=== PATIENT | female | born 1980 | race Caucasian/White ===

== ENCOUNTER 2016-12-03 17:44 | Emergency (ER) | payer SELFPAY ==
[2016-12-03 20:06] LABS: Basophils % (Auto) 1.1 % (0.0-1.8); Eosinophils % (Auto) 1.8 % (0.0-4.3); Hematocrit 41.4 % (30.3-42.9); Hemoglobin 13.7 gm/dl (10.1-14.3); Mean Corpuscular HGB Conc 33 % (30-34); Mean Corpuscular Hemoglobin 30 pg (28-32); Mean Corpuscular Volume 91 fl (79-97); Platelet Count 272 K/mm3 (140-440); Red Blood Count 4.54 M/mm3 (3.65-5.03); Red Cell Distribution Width 12.7 % (13.2-15.2); White Blood Count 12.5 K/mm3 (4.5-11.0)
[2016-12-03 20:33] LABS: Anion Gap 22 mmol/L; Blood Urea Nitrogen 12 mg/dL (7-17); Calcium 8.9 mg/dL (8.4-10.2); Carbon Dioxide 19 mmol/L (22-30); Glucose 465 mg/dL (65-100); Potassium 4.3 mmol/L (3.6-5.0); Sodium 130 mmol/L (137-145)
[2016-12-03] MEDS ORDERED: XYLOCAINE 1%/ EPI 1:100,000 INFILTRATI ONE (23:05)
[2016-12-03] MEDS ORDERED: SUBLIMAZE IV ONE (23:09)
[2016-12-03] MEDS ORDERED: XYLOCAINE 2%/ EPI 1:200,000 INFILTRATI ONE (23:09)
--- NOTE | 2016-12-03 23:25 | Emergency Department Report ---
ED General Adult HPI - General Chief complaint: Skin/Abscess/Foreign Body Stated complaint: HYPERGLYCEMIA Time Seen by Provider: 12/03/16 22:51 Source: patient Mode of arrival: Ambulatory Limitations: No Limitations - History of Present Illness Initial comments: This is a 36-year-old female. She is previously known to me. Her primary care doctor is Dr. Harsha Hernandez. Has a past medical history of diabetes. Patient ran out of insulin approximately one month ago; the patient takes Humulin 20 units in the morning, and 20 units at night. Patient reports that she is not . She presents to the ER with right lower abdominal abscess, with mild surrounding cellulitis. No fevers or chills , no chest pain or shortness of breath, no nausea or vomiting, reports pain in that area which is sharp, increases with palpation and range of motion, decreases with rest. -: Gradual Location: abdomen Radiation: non-radiation Severity scale (0 -10): 7 Quality: sharp Consistency: intermittent Improves with: rest Worsens with: movement Associated Symptoms: denies other symptoms - Related Data Previous Rx's Medication Instructions Recorded Last Taken Type Acetaminophen/Codeine [Tylenol #3] 1 tab PO Q6H PRN #20 tab 08/09/15 Unknown Rx Amoxicillin [Trimox CAP] 500 mg PO Q8H #30 capsule 08/09/15 Unknown Rx Insulin NPH/Regular [NovoLIN 70/30] 20 unit SQ BID #30 ml 08/09/15 Unknown Rx Vit-Fe Fumar-FA [ 1 tab PO QDAY #90 tablet 08/09/15 Unknown Rx Vitamin] Cephalexin [Keflex] 500 mg PO Q12HR #20 cap 09/12/15 Unknown Rx Doxycycline [Vibramycin CAP] 100 mg PO Q12HR #10 capsule 12/03/16 Unknown Rx Insulin NPH, Human [NovoLIN N] 20 unit SQ BID #100 ml 12/03/16 Unknown Rx Ketorolac [Toradol] 10 mg PO Q6H PRN #20 tablet 12/03/16 Unknown Rx oxyCODONE [Roxicodone] 5 mg PO Q6HR PRN #15 tablet 12/04/16 Unknown Rx Allergies Allergy/AdvReac Type Severity Reaction Status Date / Time No Known Allergies Allergy Verified 12/03/16 18:26 ED Review of Systems ROS: Stated complaint: HYPERGLYCEMIA Other details as noted in HPI Constitutional: denies: fever Eyes: denies: vision change ENT: denies: epistaxis Respiratory: denies: cough Cardiovascular: denies: chest pain Gastrointestinal: as per HPI. denies: vomiting Genitourinary: denies: urgency, dysuria Musculoskeletal: arthralgia Skin: rash, lesions Neurological: as per HPI Psychiatric: as per HPI ED Past Medical Hx - Past Medical History Hx Hypertension: No Hx Diabetes: Yes Hx Deep Vein Thrombosis: No Hx Renal Disease: No Hx Sickle Cell Disease: No Hx Seizures: No Hx Asthma: Yes Hx HIV: No - Surgical History Additional Surgical History: 2010, abdominal abscess - Social History Smoking Status: Never Smoker - Medications Home Medications: Home Medications Medication Instructions Recorded Confirmed Last Taken Type Acetaminophen/Codeine [Tylenol #3] 1 tab PO Q6H PRN #20 tab 08/09/15 Unknown Rx Amoxicillin [Trimox CAP] 500 mg PO Q8H #30 capsule 08/09/15 Unknown Rx Insulin NPH/Regular [NovoLIN 70/30] 20 unit SQ BID #30 ml 08/09/15 Unknown Rx Vit-Fe Fumar-FA [ 1 tab PO QDAY #90 tablet 08/09/15 Unknown Rx Vitamin] Cephalexin [Keflex] 500 mg PO Q12HR #20 cap 09/12/15 Unknown Rx Doxycycline [Vibramycin CAP] 100 mg PO Q12HR #10 capsule 12/03/16 Unknown Rx Insulin NPH, Human [NovoLIN N] 20 unit SQ BID #100 ml 12/03/16 Unknown Rx Ketorolac [Toradol] 10 mg PO Q6H PRN #20 tablet 12/03/16 Unknown Rx oxyCODONE [Roxicodone] 5 mg PO Q6HR PRN #15 tablet 12/04/16 Unknown Rx ED Physical Exam - General Limitations: No Limitations General appearance: alert, in no apparent distress, obese - Head Head exam: Present: atraumatic, normocephalic - Eye Eye exam: Present: normal appearance, EOMI. Absent: nystagmus - ENT ENT exam: Present: normal exam, normal orophraynx, mucous membranes moist, normal external ear exam - Neck Neck exam: Present: normal inspection. Absent: tenderness, meningismus - Respiratory Respiratory exam: Present: normal lung sounds bilaterally. Absent: respiratory distress, wheezes, rales, rhonchi, stridor, decreased breath sounds - Cardiovascular Cardiovascular Exam: Present: regular rate, normal rhythm, normal heart sounds. Absent: bradycardia, tachycardia, irregular rhythm, systolic murmur, diastolic murmur, rubs, gallop - GI/Abdominal GI/Abdominal exam: Present: soft, tenderness, normal bowel sounds, other (on the right lower inferior aspect of the abdominal wall, there is a 4 x 2 cm oval shaped abscess, with mild surrounding cellulitis.). Absent: distended, guarding , rebound, rigid, pulsatile mass - Extremities Exam Extremities exam: Present: normal inspection, full ROM, normal capillary refill. Absent: tenderness, pedal edema, joint swelling, calf tenderness - Back Exam Back exam: Present: normal inspection, full ROM. Absent: tenderness, CVA tenderness (R), CVA tenderness (L), muscle spasm, paraspinal tenderness, vertebral tenderness - Neurological Exam Neurological exam: Present: alert, oriented X3, normal gait, other (Extraocular movements intact. Tongue midline. No facial droop. Facial sensation intact to light touch in the V1, V2, V3 distribution bilaterally. 5 and 5 strength in 4 extremities.. Sensation is intact to light touch in 4 extremities.). Absent : motor sensory deficit - Psychiatric Psychiatric exam: Present: normal affect, normal mood - Skin Skin exam: Present: warm, erythema (erythema, induration) ED Course Vital Signs 12/03/16 12/03/16 12/04/16 18:17 23:21 01:28 Temperature 98.2 F 98.0 F Pulse Rate 90 87 88 Respiratory 16 16 16 Rate Blood Pressure 146/94 Blood Pressure 148/88 136/82 [Left] O2 Sat by Pulse 99 99 99 Oximetry - Reevaluation(s) Reevaluation #1: 12/03/16 23:31 Differential diagnosis: Abscess, cellulitis, incidental hyperglycemia, medication noncompliance Assessment and plan: 36-year-old female with hyperglycemia, abdominal wall abscess, mild surrounding cellulitis. Afebrile, reassuring vital signs with the exception of slightly elevated blood pressure. The abscess was incised and drained without difficulty. She tolerated the procedure well. She was given IV fluids and insulin, and her hyperglycemia improved. She reports that she is able to fill a prescription. She will be discharged with instructions to follow up with an outpatient primary care doctor. Return precautions are extensively reviewed. Wound care instructions are reviewed with the patient. Reevaluation #2: 12/04/16 01:03 Accu-Chek is moderately improved. Given that patient has been off of her diabetic medication for over a month, I think it is very unlikely that she will have a significant clinical decompensation from her mild hyperglycemia at this time. Her insulin is refilled. She is instructed as to the importance of outpatient follow-up medication compliance and dietary restrictions. She will be discharged at this time. Return precautions are reviewed. - EJ/Peripheral Line Arm R Time Out Performed: Yes Indications: other (obtain expedited access) Skin Cleansed in Sterile Fashion: Yes Size: 20 Dressing Placed: Tegaderm Patient Tolerated Procedure: well - I & D Right Lower Anterior Abdomen Type of Procedure: Simple Site: right inferior lateral abdominal wall Blade Size: 11 I & D Procedure: betadine prep, sterile drapes applied, sterile dressing applied Progress: On the right lower anterior abdominal wall, an oval-shaped abscess, approximately 4 mm in the long direction by 2 mm in the short axis is noted with mild surrounding cellulitis. This is confirmed with bedside ultrasound. The site is prepped with Betadine, and then anesthetized with 2% lidocaine and epinephrine (4 mL). A 1.5 cm incision is made with an 11 blade, and approximately 15 mL of bloody pus was expressed. A dressing is then applied, after the wound is explored, and irrigated thoroughly. The patient tolerated the procedure well. - Laceration /Wound Repair Right Lower Anterior Abdomen Wound Location: abdomen ED Medical Decision Making - Lab Data Result diagrams: 12/03/16 19:53 12/03/16 19:53 Vital Signs 12/03/16 12/03/16 18:17 23:21 Temperature 98.2 F Pulse Rate 90 87 Respiratory 16 16 Rate Blood Pressure 146/94 Blood Pressure 148/88 [Left] O2 Sat by Pulse 99 99 Oximetry Lab Results 12/03/16 12/03/16 12/03/16 Range/Units 18:22 19:53 19:53 WBC 12.5 H (4.5-11.0) K/mm3 RBC 4.54 (3.65-5.03) M/mm3 Hgb 13.7 (10.1-14.3) gm/dl Hct 41.4 (30.3-42.9) % MCV 91 (79-97) fl MCH 30 (28-32) pg MCHC 33 (30-34) % RDW 12.7 L (13.2-15.2) % Plt Count 272 (140-440) K/mm3 Lymph % (Auto) 19.4 (13.4-35.0) % Sherman % (Auto) 4.8 (0.0-7.3) % Eos % (Auto) 1.8 (0.0-4.3) % Baso % (Auto) 1.1 (0.0-1.8) % Lymph # 2.4 (1.2-5.4) K/mm3 Sherman # 0.6 (0.0-0.8) K/mm3 Eos # 0.2 (0.0-0.4) K/mm3 Baso # 0.1 (0.0-0.1) K/mm3 Seg Neutrophils % 72.9 H (40.0-70.0) % Seg Neutrophils # 9.1 H (1.8-7.7) K/mm3 VBG pH (7.320-7.420) Sodium 130 L (137-145) mmol/L Potassium 4.3 (3.6-5.0) mmol/L Chloride 93.0 L (98-107) mmol/L Carbon Dioxide 19 L (22-30) mmol/L Anion Gap 22 mmol/L BUN 12 (7-17) mg/dL Creatinine 0.5 L (0.7-1.2) mg/dL Estimated GFR > 60 ml/min BUN/Creatinine Ratio 24.00 % Glucose 465 H (65-100) mg/dL POC Glucose 443 H (70-105) Calcium 8.9 (8.4-10.2) mg/dL Ketones (-0.28) mmol/L // Range/Units 19:53 WBC (4.5-11.0) K/mm3 RBC (3.65-5.03) M/mm3 Hgb (10.1-14.3) gm/dl Hct (30.3-42.9) % MCV (79-97) fl MCH (28-32) pg MCHC (30-34) % RDW (13.2-15.2) % Plt Count (140-440) K/mm3 Lymph % (Auto) (13.4-35.0) % Sherman % (Auto) (0.0-7.3) % Eos % (Auto) (0.0-4.3) % Baso % (Auto) (0.0-1.8) % Lymph # (1.2-5.4) K/mm3 Sherman # (0.0-0.8) K/mm3 Eos # (0.0-0.4) K/mm3 Baso # (0.0-0.1) K/mm3 Seg Neutrophils % (40.0-70.0) % Seg Neutrophils # (1.8-7.7) K/mm3 VBG pH 7.359 (7.320-7.420) Sodium (137-145) mmol/L Potassium (3.6-5.0) mmol/L Chloride (98-107) mmol/L Carbon Dioxide (22-30) mmol/L Anion Gap mmol/L BUN (7-17) mg/dL Creatinine (0.7-1.2) mg/dL Estimated GFR ml/min BUN/Creatinine Ratio % Glucose (65-100) mg/dL POC Glucose (70-105) Calcium (8.4-10.2) mg/dL Ketones (-0.28) mmol/L Critical care attestation.: If time is entered above; I have spent that time in minutes in the direct care of this critically ill patient, excluding procedure time. ED Disposition Clinical Impression: Abscess, Hyperglycemia Disposition: DISCHARGED TO HOME OR SELFCARE Is pt being admited?: No Does the pt Need Aspirin: No Condition: Stable Instructions: Abscess (ED), Diabetic Hyperglycemia (ED) Additional Instructions: Applied warm compresses to the affected area. Wash the affected area with gentle soap and water every 8-12 hours. Have the wound site inspected by medical professional in 2 days. U have the option of returning to the emergency room for a wound check, or follow up at an urgent care center, or follow up with primary care doctor. Take a diabetic medication as directed. Follow up with her primary care doctor within the next week to 10 days for further evaluation and management for hyperglycemia/diabetes. Long-term complications of hyperglycemia/diabetes includes stroke, heart attack , disability, blindness, loss of quality of life. Return to the ER right away with fevers or chills, chest pain, shortness of breath, intractable nausea or vomiting, inability to tolerate liquid feeds, new , worsening or different symptoms. If taking the oxycodone for pain, do not drive, consume alcohol, or make important decisions. Prescriptions: Doxycycline [Vibramycin CAP] 100 mg PO Q12HR #10 capsule Insulin NPH, Human [NovoLIN N] 20 unit SQ BID #100 ml Ketorolac [Toradol] 10 mg PO Q6H PRN #20 tablet PRN Reason: Pain oxyCODONE [Roxicodone] 5 mg PO Q6HR PRN #15 tablet PRN Reason: Pain Referrals: PRIMARY CAREMD [Primary Care Provider] - 3-5 Days HARSHA HERNANDEZ MD [Staff Physician] - 3-5 Days
[2016-12-03] MEDS ORDERED: NACL 0.9% 1000 ML 1,000 ML IV ONE (23:26)
[2016-12-04 01:29] VITALS: BP 136/82
== END 2016-12-04 01:28 | disposition home or self-care (01) ==
LOC: ED 17:44
DX: L02.211 Cutaneous abscess of abdominal wall (principal); E11.65 Type 2 diabetes mellitus with hyperglycemia; J45.909 Unspecified asthma, uncomplicated; Z79.4 Long term (current) use of insulin
CPT/HCPCS: 10060; 36415; 36569; 80048; 82010; 82805; 82962; 84702; 85025; 96361; 96374; 96375; 99284; J3010; J7030; J1815

== ENCOUNTER 2017-06-27 19:17 | Emergency (ER) | payer MEDICAID ==
[2017-06-27 20:34] VITALS: BP 149/83
[2017-06-27 21:37] LABS: Basophils % (Auto) 0.8 % (0.0-1.8); Eosinophils % (Auto) 0.8 % (0.0-4.3); Hematocrit 42.5 % (30.3-42.9); Hemoglobin 14.7 gm/dl (10.1-14.3); Mean Corpuscular HGB Conc 35 % (30-34); Mean Corpuscular Hemoglobin 31 pg (28-32); Mean Corpuscular Volume 90 fl (79-97); Platelet Count 286 K/mm3 (140-440); Red Blood Count 4.74 M/mm3 (3.65-5.03); Red Cell Distribution Width 12.6 % (13.2-15.2); White Blood Count 10.3 K/mm3 (4.5-11.0)
[2017-06-27 21:41] LABS: Alanine Aminotransferase 17 units/L (7-56); Albumin 3.9 g/dL (3.9-5); Albumin/Globulin Ratio 1.1 %; Alkaline Phosphatase 69 units/L (35-129); Anion Gap 21 mmol/L; BUN/Creatinine Ratio 23; Blood Urea Nitrogen 14 mg/dL (7-17); Calcium 9.4 mg/dL (8.4-10.2); Carbon Dioxide 21 mmol/L (22-30); Chloride 90.7 mmol/L (98-107); Glucose 391 mg/dL (65-100); Lipase 55 units/L (13-60); Potassium 3.8 mmol/L (3.6-5.0); Sodium 129 mmol/L (137-145); Total Protein 7.4 g/dL (6.3-8.2)
[2017-06-27 22:08] LABS: Bilirubin,Urine NEG (Negative); Blood,Urine NEG (Negative); Ketones,Urine NEG (Negative); Leukocyte Esterase,Urine NEG (Negative); Mucus,Urine FEW /HPF; Nitrite,Urine NEG (Negative); Urobilinogen,Urine < 2.0 mg/dL (<2.0)
== END 2017-06-28 03:04 | disposition left against medical advice (07) ==
LOC: ED 19:17
DX: M54.9 Dorsalgia, unspecified (principal); Z53.21 Procedure and treatment not carried out due to patient leaving prior to being seen by health care provider
CPT/HCPCS: 36415; 80053; 81001; 83690; 84703; 85025; 87591

== ENCOUNTER 2018-11-13 07:57 | Emergency (ER) | payer MEDICAID, OTHER ==
[2018-11-13 08:31] LABS: Basophils # (Auto) 0.1 K/mm3 (0.0-0.1); Basophils % (Auto) 0.8 % (0.0-1.8); Eosinophils % (Auto) 0.4 % (0.0-4.3); Hematocrit 37.5 % (30.3-42.9); Hemoglobin 13.3 gm/dl (10.1-14.3); Lymphocytes # (Auto) 2.1 K/mm3 (1.2-5.4); Mean Corpuscular HGB Conc 36 % (30-34); Mean Corpuscular Volume 88 fl (79-97); Monocytes # (Auto) 0.7 K/mm3 (0.0-0.8); Monocytes % (Auto) 5.8 % (0.0-7.3); Platelet Count 365 K/mm3 (140-440); Red Blood Count 4.27 M/mm3 (3.65-5.03); Red Cell Distribution Width 13.3 % (13.2-15.2)
[2018-11-13 08:46] LABS: Alanine Aminotransferase 11 units/L (7-56); Albumin 4.1 g/dL (3.9-5); BUN/Creatinine Ratio 19; Blood Urea Nitrogen 13 mg/dL (7-17); Calcium 9.3 mg/dL (8.4-10.2); Hemolysis Index 1
[2018-11-13] MEDS ORDERED: ZOFRAN IV ONE (08:46)
[2018-11-13] MEDS ORDERED: NACL 0.9% 1000 ML 1,000 ML IV ONE ×2 (08:46→09:17)
[2018-11-13 09:14] LABS: Bacteria,Urine 1+ /HPF (Negative); Bilirubin,Urine NEG (Negative); Blood,Urine NEG (Negative); Mucus,Urine 2+ /HPF
[2018-11-13 09:16] LABS: Color,Urine Yellow (Yellow); Protein,Urine >500 mg/dL (Negative)
[2018-11-13] MEDS ORDERED: PEPCID IV ONE (09:16)
--- NOTE | 2018-11-13 09:20 | Emergency Department Report ---
ED Abdominal Pain HPI - General Chief Complaint: Abdominal Pain Stated Complaint: VOMIT 2 DAYS/STOMACH PAIN Time Seen by Provider: 11/13/18 08:44 Source: patient Mode of arrival: Ambulatory Limitations: No Limitations - History of Present Illness Initial Comments: 38-year-old female with a past medical history of obesity, diabetes, previous C- section 2, and previous abdominal wall abscess presents to the hospital with complaints of nausea, vomiting, abdominal pain 2 days. She has by mouth intolerance and unable to tolerate liquids during the time. She complains of pain greatest in the epigastric area, rated 7/10 in intensity, intermittent, fee ls a cramp, and worse to palpation. She presents to the ER with accident dry heaving. She states that she did have some blood tinged vomitus today she denies diarrhea, melena, hematochezia, fever, recent travel, or sick contacts. He states one month ago she was admitted to the hospital for pneumonia but denies cough or cold symptoms currently. Patient's LMP was 10/05/2018 and her cycles are typically irregular due to a "hormone imbalance". Severity scale (0 -10): 8 - Related Data Previous Rx's Medication Instructions Recorded Last Taken Type Acetaminophen/Codeine [Tylenol #3] 1 tab PO Q6H PRN #20 tab 08/09/15 Unknown Rx Amoxicillin [Trimox CAP] 500 mg PO Q8H #30 capsule 08/09/15 Unknown Rx Insulin NPH/Regular [NovoLIN 70/30] 20 unit SQ BID #30 ml 08/09/15 Unknown Rx Vit-Fe Fumar-FA [ 1 tab PO QDAY #90 tablet 08/09/15 Unknown Rx Vitamin] cephALEXin [Keflex] 500 mg PO Q12HR #20 cap 09/12/15 Unknown Rx Doxycycline [Vibramycin CAP] 100 mg PO Q12HR #10 capsule 12/03/16 Unknown Rx Insulin NPH, Human [NovoLIN N] 20 unit SQ BID #100 ml 12/03/16 Unknown Rx Ketorolac [Toradol] 10 mg PO Q6H PRN #20 tablet 12/03/16 Unknown Rx oxyCODONE [Roxicodone] 5 mg PO Q6HR PRN #15 tablet 12/04/16 Unknown Rx Famotidine [Pepcid] 20 mg PO BID #30 tablet 11/13/18 Unknown Rx Ondansetron [Zofran Odt] 4 mg PO Q8HR PRN #20 tab.rapdis 11/13/18 Unknown Rx Allergies Allergy/AdvReac Type Severity Reaction Status Date / Time No Known Allergies Allergy Verified 12/03/16 18:26 ED Review of Systems ROS: Stated complaint: VOMIT 2 DAYS/STOMACH PAIN Other details as noted in HPI Comment: All other systems reviewed and negative ED Past Medical Hx - Past Medical History Previous Medical History?: Yes Hx Hypertension: No Hx Diabetes: Yes Hx Deep Vein Thrombosis: No Hx Renal Disease: No Hx Sickle Cell Disease: No Hx Seizures: No Hx Asthma: Yes Hx HIV: No Additional medical history: Obesity - Surgical History Past Surgical History?: Yes Additional Surgical History: 2011, abdominal abscess - Social History Smoking Status: Never Smoker Substance Use Type: None - Medications Home Medications: Home Medications Medication Instructions Recorded Confirmed Last Taken Type Acetaminophen/Codeine [Tylenol #3] 1 tab PO Q6H PRN #20 tab 08/09/15 Unknown Rx Amoxicillin [Trimox CAP] 500 mg PO Q8H #30 capsule 08/09/15 Unknown Rx Insulin NPH/Regular [NovoLIN 70/30] 20 unit SQ BID #30 ml 08/09/15 Unknown Rx Vit-Fe Fumar-FA [ 1 tab PO QDAY #90 tablet 08/09/15 Unknown Rx Vitamin] cephALEXin [Keflex] 500 mg PO Q12HR #20 cap 09/12/15 Unknown Rx Doxycycline [Vibramycin CAP] 100 mg PO Q12HR #10 capsule 12/03/16 Unknown Rx Insulin NPH, Human [NovoLIN N] 20 unit SQ BID #100 ml 12/03/16 Unknown Rx Ketorolac [Toradol] 10 mg PO Q6H PRN #20 tablet 12/03/16 Unknown Rx oxyCODONE [Roxicodone] 5 mg PO Q6HR PRN #15 tablet 12/04/16 Unknown Rx Famotidine [Pepcid] 20 mg PO BID #30 tablet 11/13/18 Unknown Rx Ondansetron [Zofran Odt] 4 mg PO Q8HR PRN #20 tab.rapdis 11/13/18 Unknown Rx ED Physical Exam - General Limitations: No Limitations - Other Other exam information: General: No limitations, patient is alert in no acute distress Head exam: Atraumatic, normocephalic Eyes exam: Normal appearance, pupils equal reactive to light, extraocular movements intact, nonicteric sclera ENT: Moist mucous membrane, normal oropharynx Neck exam: Normal inspection, full range of motion, no meningismus nontender Respiratory exam: Clear to auscultation bilateral, no wheezes, rales, crackles Cardiovascular: Normal rate and rhythm Abdomen: Soft, nondistended, right upper quadrant, epigastric, and left upper quadrant tenderness on palpation, with normal bowel sounds, no rebound, or guarding Extremity: Full range of motion normal inspection no deformity Back: Normal Inspection, full range of motion, no tenderness Neurologic: Alert, oriented x3, cranial nerves intact, no motor or sensory deficit Psychiatric: normal affect, normal mood Skin: Warm, dry, intact ED Course Vital Signs 11/13/18 11/13/18 11/13/18 08:05 08:39 08:41 Temperature 97.9 F 97.9 F Pulse Rate 82 77 Respiratory 20 14 Rate Blood Pressure 137/89 Blood Pressure 137/78 [Left] O2 Sat by Pulse 99 99 99 Oximetry 11/13/18 11/13/18 11/13/18 08:45 09:29 09:30 Temperature Pulse Rate 74 Respiratory 12 Rate Blood Pressure 159/98 137/78 131/82 Blood Pressure [Left] O2 Sat by Pulse 99 100 100 Oximetry 11/13/18 11/13/18 11/13/18 09:45 10:00 12:00 Temperature 97.9 F 97.9 F Pulse Rate 100 H 87 Respiratory 16 17 Rate Blood Pressure 124/78 139/78 Blood Pressure 139/78 124/72 [Left] O2 Sat by Pulse 100 100 100 Oximetry 11/13/18 11/13/18 11/13/18 12:12 12:15 12:30 Temperature Pulse Rate 79 75 Respiratory 17 15 Rate Blood Pressure 124/78 123/81 123/81 Blood Pressure [Left] O2 Sat by Pulse 100 99 99 Oximetry 11/13/18 11/13/18 11/13/18 12:46 13:00 13:16 Temperature Pulse Rate 69 70 74 Respiratory 9 L 14 18 Rate Blood Pressure 139/78 111/61 111/61 Blood Pressure [Left] O2 Sat by Pulse 99 99 99 Oximetry 11/13/18 11/13/18 11/13/18 13:30 13:46 14:00 Temperature 97.9 F Pulse Rate 73 83 82 Respiratory 15 17 15 Rate Blood Pressure 111/61 111/61 136/74 Blood Pressure 136/74 [Left] O2 Sat by Pulse 98 100 97 Oximetry ED Medical Decision Making - Lab Data Result diagrams: 11/13/18 08:21 11/13/18 08:21 Lab Results 11/13/18 11/13/18 11/13/18 Range/Units 08:21 08:21 08:21 WBC 11.6 H (4.5-11.0) K/mm3 RBC 4.27 (3.65-5.03) M/mm3 Hgb 13.3 (10.1-14.3) gm/dl Hct 37.5 (30.3-42.9) % MCV 88 (79-97) fl MCH 31 (28-32) pg MCHC 36 H (30-34) % RDW 13.3 (13.2-15.2) % Plt Count 365 (140-440) K/mm3 Lymph % (Auto) 18.0 (13.4-35.0) % [place] % (Auto) 5.8 (0.0-7.3) % Eos % (Auto) 0.4 (0.0-4.3) % Baso % (Auto) 0.8 (0.0-1.8) % Lymph # 2.1 (1.2-5.4) K/mm3 [place] # 0.7 (0.0-0.8) K/mm3 Eos # 0.0 (0.0-0.4) K/mm3 Baso # 0.1 (0.0-0.1) K/mm3 Seg Neutrophils % 75.0 H (40.0-70.0) % Seg Neutrophils # 8.7 H (1.8-7.7) K/mm3 Sodium 131 L (137-145) mmol/L Potassium 3.8 (3.6-5.0) mmol/L Chloride 94.1 L (98-107) mmol/L Carbon Dioxide 23 (22-30) mmol/L Anion Gap 18 mmol/L BUN 13 (7-17) mg/dL Creatinine 0.7 (0.7-1.2) mg/dL Estimated GFR > 60 ml/min BUN/Creatinine Ratio 19 % Glucose 165 H (65-100) mg/dL POC Glucose (70-105) Calcium 9.3 (8.4-10.2) mg/dL Total Bilirubin 1.10 (0.1-1.2) mg/dL AST 12 (5-40) units/L ALT 11 (7-56) units/L Alkaline Phosphatase 58 (35-129) units/L Total Protein 8.4 H (6.3-8.2) g/dL Albumin 4.1 (3.9-5) g/dL Albumin/Globulin Ratio 1.0 % Lipase 28 (13-60) units/L HCG, Qual Positive (Negative) HCG, Quant (0-4) mIU/mL Urine Color (Yellow) Urine Turbidity (Clear) Urine pH (5.0-7.0) Ur Specific [place] (1.003-1.030) Urine Protein (Negative) mg/dL Urine Glucose (UA) (Negative) mg/dL Urine Ketones (Negative) mg/dL Urine Blood (Negative) Urine Nitrite (Negative) Urine Bilirubin (Negative) Urine Urobilinogen (<2.0) mg/dL Ur Leukocyte Esterase (Negative) Urine WBC (Auto) (0.0-6.0) /HPF Urine RBC (Auto) (0.0-6.0) /HPF U Epithel Cells (Auto) (0-13.0) /HPF Urine Bacteria (Auto) (Negative) /HPF Urine Mucus /HPF Blood Type Ord Rhogam Gestat Weeks WEEKS 11/13/18 11/13/18 11/13/18 Range/Units 08:21 08:55 08:57 WBC (4.5-11.0) K/mm3 RBC (3.65-5.03) M/mm3 Hgb (10.1-14.3) gm/dl Hct (30.3-42.9) % MCV (79-97) fl MCH (28-32) pg MCHC (30-34) % RDW (13.2-15.2) % Plt Count (140-440) K/mm3 Lymph % (Auto) (13.4-35.0) % [place] % (Auto) (0.0-7.3) % Eos % (Auto) (0.0-4.3) % Baso % (Auto) (0.0-1.8) % Lymph # (1.2-5.4) K/mm3 [place] # (0.0-0.8) K/mm3 Eos # (0.0-0.4) K/mm3 Baso # (0.0-0.1) K/mm3 Seg Neutrophils % (40.0-70.0) % Seg Neutrophils # (1.8-7.7) K/mm3 Sodium (137-145) mmol/L Potassium (3.6-5.0) mmol/L Chloride (98-107) mmol/L Carbon Dioxide (22-30) mmol/L Anion Gap mmol/L BUN (7-17) mg/dL Creatinine (0.7-1.2) mg/dL Estimated GFR ml/min BUN/Creatinine Ratio % Glucose (65-100) mg/dL POC Glucose 118 H (70-105) Calcium (8.4-10.2) mg/dL Total Bilirubin (0.1-1.2) mg/dL AST (5-40) units/L ALT (7-56) units/L Alkaline Phosphatase (35-129) units/L Total Protein (6.3-8.2) g/dL Albumin (3.9-5) g/dL Albumin/Globulin Ratio % Lipase (13-60) units/L HCG, Qual (Negative) HCG, Quant 45155 H (0-4) mIU/mL Urine Color Yellow (Yellow) Urine Turbidity Slightly-cloudy (Clear) Urine pH 5.0 (5.0-7.0) Ur Specific [place] 1.032 H (1.003-1.030) Urine Protein >500 (Negative) mg/dL Urine Glucose (UA) Neg (Negative) mg/dL Urine Ketones Tr (Negative) mg/dL Urine Blood Neg (Negative) Urine Nitrite Neg (Negative) Urine Bilirubin Neg (Negative) Urine Urobilinogen 2.0 (<2.0) mg/dL Ur Leukocyte Esterase Tr (Negative) Urine WBC (Auto) 8.0 H (0.0-6.0) /HPF Urine RBC (Auto) 7.0 (0.0-6.0) /HPF U Epithel Cells (Auto) 21.0 H (0-13.0) /HPF Urine Bacteria (Auto) 1+ (Negative) /HPF Urine Mucus 2+ /HPF Blood Type Ord Rhogam Gestat Weeks WEEKS 11/13/18 Range/Units 14:41 WBC (4.5-11.0) K/mm3 RBC (3.65-5.03) M/mm3 Hgb (10.1-14.3) gm/dl Hct (30.3-42.9) % MCV (79-97) fl MCH (28-32) pg MCHC (30-34) % RDW (13.2-15.2) % Plt Count (140-440) K/mm3 Lymph % (Auto) (13.4-35.0) % [place] % (Auto) (0.0-7.3) % Eos % (Auto) (0.0-4.3) % Baso % (Auto) (0.0-1.8) % Lymph # (1.2-5.4) K/mm3 [place] # (0.0-0.8) K/mm3 Eos # (0.0-0.4) K/mm3 Baso # (0.0-0.1) K/mm3 Seg Neutrophils % (40.0-70.0) % Seg Neutrophils # (1.8-7.7) K/mm3 Sodium (137-145) mmol/L Potassium (3.6-5.0) mmol/L Chloride (98-107) mmol/L Carbon Dioxide (22-30) mmol/L Anion Gap mmol/L BUN (7-17) mg/dL Creatinine (0.7-1.2) mg/dL Estimated GFR ml/min BUN/Creatinine Ratio % Glucose (65-100) mg/dL POC Glucose (70-105) Calcium (8.4-10.2) mg/dL Total Bilirubin (0.1-1.2) mg/dL AST (5-40) units/L ALT (7-56) units/L Alkaline Phosphatase (35-129) units/L Total Protein (6.3-8.2) g/dL Albumin (3.9-5) g/dL Albumin/Globulin Ratio % Lipase (13-60) units/L HCG, Qual (Negative) HCG, Quant (0-4) mIU/mL Urine Color (Yellow) Urine Turbidity (Clear) Urine pH (5.0-7.0) Ur Specific [place] (1.003-1.030) Urine Protein (Negative) mg/dL Urine Glucose (UA) (Negative) mg/dL Urine Ketones (Negative) mg/dL Urine Blood (Negative) Urine Nitrite (Negative) Urine Bilirubin (Negative) Urine Urobilinogen (<2.0) mg/dL Ur Leukocyte Esterase (Negative) Urine WBC (Auto) (0.0-6.0) /HPF Urine RBC (Auto) (0.0-6.0) /HPF U Epithel Cells (Auto) (0-13.0) /HPF Urine Bacteria (Auto) (Negative) /HPF Urine Mucus /HPF Blood Type A NEGATIVE Ord Rhogam Gestat Weeks <11 WEEKS - Radiology Data Radiology results: report reviewed PROCEDURE: US OB TRANSVAGINAL TECHNIQUE: Grayscale and color Doppler ultrasound imaging of the pelvis was performed transabdominally and transvaginally HISTORY: n/v + COMPARISONS: None. FINDINGS: Uterus: The uterus measures 9.8 x 6.1 x 6.7 cm. An intrauterine gestational sac, yolk sac and embryonic pole were seen. [place]-rump length is 2.7 cm corresponding with an estimated gestational age of 9 weeks and 3 days. Mean sac diameter is 4.3 cm corresponding with an estimated gestational age of 9 weeks and 6 days. Estimated gestational age is 9 weeks and 5 days with an DUYEN of 06/13/2018. Embryonic cardiac activity was detected at 170 bpm. There is a small subchorionic hemorrhage measuring 2.0 x 1.1 cm. There is a fibroid along the posterior aspect of the uterus measuring 2.6 x 2.5 x 3.4 cm. Ovaries: There are two small cysts in the right ovary which appears simple measuring 1.8 and 1.4 cm. The right ovary measures 4.6 x 3.2 x 2.4 cm. No left ovarian cysts or masses. The left ovary measures 3.8 x 1.8 x 2.3 cm. Free fluid: None. IMPRESSION: 1. Live intrauterine measuring at 9 weeks and 5 days gestational age with an DUYEN of 06/13/2019. Small subchorionic hemorrhage. 2. Uterine fibroid. 3. Two small simple right ovarian cysts are likely benign. PROCEDURE: US ABDOMEN COMPLETE TECHNIQUE: Abdomen ultrasound. HISTORY: n/v epigastric pain COMPARISONS: None currently available. FINDINGS: Liver: Liver is echogenic. This may represent fatty infiltration or hepatocellular disease. No distinct lesions. Gallbladder: No gallstones or sludge. Wall is within normal limits. 3.5 mm common bile duct is within normal limits. Pancreas: Provided images are unremarkable. Kidneys: 12.9 and 11.8 cm right and left kidneys are unremarkable. Proximal aorta measures 2.0 cm. IVC is patent. No free fluid. Spleen: Unremarkable. Left 0.3 cm. IMPRESSION: * Fatty liver. - Medical Decision Making Patient presents to the hospital nausea vomiting 2 days with new diagnosis of . Abdominal ultrasound is negative for gallstones. Labs unremarkable with exception of UA for dehydration and mild leukocytosis with elevated epithelial cells. Patient provided Macrobid. Positive heartbeat with IUP at 9 weeks in 5 days with associated subchorionic hemorrhage. No positive vaginal bleeding. History of A- blood type therefore RhoGAM provided prior to discharge. Patient will be discharged on nausea medication, Pepcid, Macrobid, and follow-up with [facility] to initiate care. - Differential Diagnosis gastroparesis, DKA, , pancreatitis, biliary colic, gastroenteritis Critical Care Time: No Critical care attestation.: If time is entered above; I have spent that time in minutes in the direct care of this critically ill patient, excluding procedure time. ED Disposition Clinical Impression: Nausea and vomiting during , Dehydration, Urine leukocytes increased, Subchorionic hematoma in first trimester, Rh negative status during Disposition: DC-01 TO HOME OR SELFCARE Is pt being admited?: No Does the pt Need Aspirin: No Condition: Stable Instructions: Hyperemesis Gravidarum (ED) Additional Instructions: Follow-up with the [facility] provided with the group of your choice. Return if symptoms worse as indicated by your discharge instructions Prescriptions: Famotidine [Pepcid] 20 mg PO BID #30 tablet Ondansetron [Zofran Odt] 4 mg PO Q8HR PRN #20 tab.rapdis PRN Reason: Nausea And Vomiting Referrals: [facility] [Provider Group] - 3-5 Days Time of Disposition: 15:25 (to d/c after rhogam)
--- NOTE | 2018-11-13 12:38 | Ultrasound Report ---
PROCEDURE: US ABDOMEN COMPLETE TECHNIQUE: Abdomen ultrasound. HISTORY: n/v epigastric pain COMPARISONS: None currently available. FINDINGS: Liver: Liver is echogenic. This may represent fatty infiltration or hepatocellular disease. No distin ct lesions. Gallbladder: No gallstones or sludge. Wall is within normal limits. 3.5 mm common bile duct is within normal limits. Pancreas: Provided images are unremarkable. Kidneys: 12.9 and 11.8 cm right and left kidneys are unremarkable. Proximal aorta measures 2.0 cm. IVC is patent. No free fluid. Spleen: Unremarkable. Left 0.3 cm. IMPRESSION: * Fatty liver. This document is electronically signed by Benitez Johnson MD., November 13 2018 12:35:33 PM ET
--- NOTE | 2018-11-13 12:51 | Ultrasound Report ---
PROCEDURE: US OB <= 14 WEEKS FETUS TECHNIQUE: Grayscale and color Doppler ultrasound imaging of the pelvis was performed transabdominal ly and transvaginally HISTORY: n/v + COMPARISONS: None. FINDINGS: Uterus: The uterus measures 9.8 x 6.1 x 6.7 cm. An intrauterine gestational sac, yolk sac and embryon ic pole were seen. [place]-rump length is 2.7 cm corresponding with an estimated gestational age of 9 w eeks and 3 days. Mean sac diameter is 4.3 cm corresponding with an estimated gestational age of 9 wee ks and 6 days. Estimated gestational age is 9 weeks and 5 days with an DUYEN of 06/13/2018. Embryonic cardiac activity was detected at 170 bpm. There is a small subchorionic hemorrhage measuring 2.0 x 1.1 cm. There is a fibroid along the posterior aspect of the uterus measuring 2.6 x 2.5 x 3.4 cm. Ovaries: There are two small cysts in the right ovary which appears simple measuring 1.8 and 1.4 cm. The right ovary measures 4.6 x 3.2 x 2.4 cm. No left ovarian cysts or masses. The left ovary measures 3.8 x 1.8 x 2.3 cm. Free fluid: None. IMPRESSION: 1. Live intrauterine measuring at 9 weeks and 5 days gestational age with an DUYEN of 06/13/20 19. Small subchorionic hemorrhage. 2. Uterine fibroid. 3. Two small simple right ovarian cysts are likely benign. This document is electronically signed by Ania Lee., November 13 2018 12:48:53 PM ET
[2018-11-13] MEDS ORDERED: MACROBID PO ONE (13:59)
[2018-11-13 18:33] VITALS: BP 143/76
== END 2018-11-13 18:00 | disposition home or self-care (01) ==
LOC: ED 07:57
DX: O99.281 Endocrine, nutritional and metabolic diseases complicating pregnancy, first trimester (principal); O21.8 Other vomiting complicating pregnancy; E86.0 Dehydration; Z3A.09 9 weeks gestation of pregnancy; J45.909 Unspecified asthma, uncomplicated
CPT/HCPCS: 36415; 76700; 76801; 76817; 80053; 81001; 82962; 83690; 84702; 84703; 85025; 86850; 86900; 86901; 93005; 93010; 96361; 96374; 96375; 99284; J2405; J2790; J7030

== ENCOUNTER 2019-02-17 14:14 | Outpatient (CLI) | payer OTHER ==
[2019-02-17 14:46] VITALS: BP 120/68
[2019-02-17 15:22] LABS: Bilirubin,Urine NEG (Negative); Blood,Urine NEG (Negative); Color,Urine Amber (Yellow); Hyaline Casts,Urine 1 /LPF; Mucus,Urine FEW /HPF
[2019-02-17 15:45] LABS: Protein,Urine >500 mg/dL (Negative)
[2019-02-17] MEDS ORDERED: ZOFRAN IV ONE (15:58)
[2019-02-17] MEDS ORDERED: LACTATED RINGERS 1,000 ML IV ONE (15:58)
[2019-02-17] MEDS ORDERED: TYLENOL PO ONE (18:01)
[2019-02-17 19:26] LABS: Basophils # (Auto) 0.1 K/mm3 (0.0-0.1); Basophils % (Auto) 0.6 % (0.0-1.8); Eosinophils % (Auto) 0.3 % (0.0-4.3); Hematocrit 33.6 % (30.3-42.9); Hemoglobin 12.2 gm/dl (10.1-14.3); Lymphocytes # (Auto) 1.8 K/mm3 (1.2-5.4); Lymphocytes % (Auto) 16.2 % (13.4-35.0); Mean Corpuscular HGB Conc 36 % (30-34); Mean Corpuscular Volume 90 fl (79-97); Monocytes # (Auto) 0.6 K/mm3 (0.0-0.8); Platelet Count 294 K/mm3 (140-440); Red Blood Count 3.75 M/mm3 (3.65-5.03); Red Cell Distribution Width 12.9 % (13.2-15.2)
[2019-02-17 19:41] LABS: Alanine Aminotransferase 6 units/L (7-56); Albumin 3.6 g/dL (3.9-5); BUN/Creatinine Ratio 17; Blood Urea Nitrogen 10 mg/dL (7-17); Calcium 9.1 mg/dL (8.4-10.2); Hemolysis Index 6
[2019-02-17] MEDS ORDERED: ZOFRAN ODT PO PRN (21:25)
== END 2019-02-17 21:57 | disposition home or self-care (01) ==
LOC: TRG 14:14
PROVIDERS: ATTEND Obstetrics & Gynecology
DX: O21.2 Late vomiting of pregnancy (principal); O99.512 Diseases of the respiratory system complicating pregnancy, second trimester; J45.909 Unspecified asthma, uncomplicated; O23.42 Unspecified infection of urinary tract in pregnancy, second trimester; O24.414 Gestational diabetes mellitus in pregnancy, insulin controlled; O47.02 False labor before 37 completed weeks of gestation, second trimester; O09.522 Supervision of elderly multigravida, second trimester; Z3A.23 23 weeks gestation of pregnancy; Z87.01 Personal history of pneumonia (recurrent)
CPT/HCPCS: 36415; 59025; 80053; 81001; 82150; 82962; 83690; 85025; 96361; 96365; J2405; J7120; 96360; 96374; Q0162

== ENCOUNTER 2020-10-18 14:48 | Day surgery (SDC) | payer SELFPAY ==
[2020-10-18 16:02] LABS: Basophils # (Auto) 0.1 K/mm3 (0.0-0.1); Eosinophils # (Auto) 0.2 K/mm3 (0.0-0.4); Eosinophils % (Auto) 1.9 % (0.0-4.3); Hematocrit 37.2 % (30.3-42.9); Lymphocytes # (Auto) 1.8 K/mm3 (1.2-5.4); Lymphocytes % (Auto) 17.3 % (13.4-35.0); Mean Corpuscular HGB Conc 35 % (30-34); Mean Corpuscular Volume 90 fl (79-97); Monocytes # (Auto) 0.6 K/mm3 (0.0-0.8); Monocytes % (Auto) 5.3 % (0.0-7.3); Platelet Count 271 K/mm3 (140-440); Red Blood Count 4.11 M/mm3 (3.65-5.03); Red Cell Distribution Width 12.7 % (13.2-15.2)
[2020-10-18] MEDS ORDERED: SODIUM CHLORIDE 0.9% 1000 ML 1,000 ML IV ONE ×2 (16:12→20:31)
[2020-10-18 16:15] LABS: INR 0.9 (0.87-1.13); Partial Thromboplastin Time 24.4 Sec. (24.2-36.6)
--- NOTE | 2020-10-18 16:21 | Emergency Department Report ---
ED Female HPI - General Chief complaint: Vaginal Bleeding Stated complaint: VAG BLEEDING Time Seen by Provider: 10/18/20 16:11 Source: patient Mode of arrival: Ambulatory Limitations: No Limitations - History of Present Illness Initial comments: Patient is 40 years old female 4 para 3 with 1 miscarriage. Patient presented to the ER with a sudden onset of vaginal bleeding with clots that started this afternoon. Patient stated that she had 2 episode so far. Patient denied any . Patient also complaining of lower abdominal cramping. Patient denied any fever or chills. No nausea or vomiting. MD Complaint: vaginal bleeding, pelvic pain -: Sudden, This afternoon Severity scale (0 -10): 4 Quality: cramping Consistency: intermittent Worsens with: none Are you Now?: No - Related Data Sexually active: Yes : 4 Para: 3 A: 1 Previous Rx's Medication Instructions Recorded Last Taken Type Acetaminophen/Codeine [Tylenol #3] 1 tab PO Q6H PRN #20 tab 08/09/15 Unknown Rx Amoxicillin [Trimox CAP] 500 mg PO Q8H #30 capsule 08/09/15 Unknown Rx Insulin NPH/Regular [NovoLIN 70/30] 20 unit SQ BID #30 ml 08/09/15 Unknown Rx cephALEXin [Keflex] 500 mg PO Q12HR #20 cap 09/12/15 Unknown Rx DOXYCYCLINE Hyclate [Vibramycin 100 mg PO Q12HR #10 capsule 12/03/16 Unknown Rx CAP] Insulin NPH, Human [NovoLIN N] 20 unit SQ BID #100 ml 12/03/16 Unknown Rx Ketorolac [Toradol] 10 mg PO Q6H PRN #20 tablet 12/03/16 Unknown Rx oxyCODONE [Roxicodone] 5 mg PO Q6HR PRN #15 tablet 12/04/16 Unknown Rx Famotidine [Pepcid] 20 mg PO BID #30 tablet 11/13/18 Unknown Rx Nitrofurantoin Monohyd/M-Cryst 100 mg PO BID #13 capsule 11/13/18 Unknown Rx [Macrobid 100 mg Capsule] Ondansetron [Zofran Odt] 4 mg PO Q8HR PRN #20 tab.rapdis 11/13/18 Unknown Rx Vit-Fe Fumar-FA [ 1 tab PO QDAY #30 tablet 11/13/18 Unknown Rx Vitamin] Ondansetron [Zofran Odt] 4 mg PO Q12H PRN #30 tab.rapdis 02/17/19 Unknown Rx Allergies Allergy/AdvReac Type Severity Reaction Status Date / Time No Known Allergies Allergy Verified 02/17/19 14:57 ED Review of Systems ROS: Stated complaint: VAG BLEEDING Other details as noted in HPI Comment: All other systems reviewed and negative Constitutional: denies: chills, fever Respiratory: denies: cough, shortness of breath, SOB with exertion, wheezing Cardiovascular: denies: chest pain Gastrointestinal: abdominal pain. denies: nausea, vomiting, diarrhea, constipation, hematemesis, melena, hematochezia Musculoskeletal: denies: back pain Neurological: denies: headache, weakness, numbness, paresthesias, confusion ED Past Medical Hx - Past Medical History Previous Medical History?: Yes Hx Hypertension: No Hx Diabetes: Yes Hx Deep Vein Thrombosis: No Hx Renal Disease: No Hx Sickle Cell Disease: No Hx Seizures: No Hx Asthma: Yes Hx HIV: No Additional medical history: Obesity - Surgical History Past Surgical History?: Yes Additional Surgical History: 2010, abdominal abscess - Social History Smoking Status: Never Smoker - Medications Home Medications: Home Medications Medication Instructions Recorded Confirmed Last Taken Type Acetaminophen/Codeine [Tylenol #3] 1 tab PO Q6H PRN #20 tab 08/09/15 Unknown Rx Amoxicillin [Trimox CAP] 500 mg PO Q8H #30 capsule 08/09/15 Unknown Rx Insulin NPH/Regular [NovoLIN 70/30] 20 unit SQ BID #30 ml 08/09/15 Unknown Rx cephALEXin [Keflex] 500 mg PO Q12HR #20 cap 09/12/15 Unknown Rx DOXYCYCLINE Hyclate [Vibramycin 100 mg PO Q12HR #10 capsule 12/03/16 Unknown Rx CAP] Insulin NPH, Human [NovoLIN N] 20 unit SQ BID #100 ml 12/03/16 Unknown Rx Ketorolac [Toradol] 10 mg PO Q6H PRN #20 tablet 12/03/16 Unknown Rx oxyCODONE [Roxicodone] 5 mg PO Q6HR PRN #15 tablet 12/04/16 Unknown Rx Famotidine [Pepcid] 20 mg PO BID #30 tablet 11/13/18 Unknown Rx Nitrofurantoin Monohyd/M-Cryst 100 mg PO BID #13 capsule 11/13/18 Unknown Rx [Macrobid 100 mg Capsule] Ondansetron [Zofran Odt] 4 mg PO Q8HR PRN #20 tab.rapdis 11/13/18 Unknown Rx Vit-Fe Fumar-FA [ 1 tab PO QDAY #30 tablet 11/13/18 Unknown Rx Vitamin] Ondansetron [Zofran Odt] 4 mg PO Q12H PRN #30 tab.rapdis 02/17/19 Unknown Rx ED Physical Exam - General Limitations: No Limitations General appearance: alert, in no apparent distress - Head Head exam: Present: atraumatic, normocephalic, normal inspection - Eye Eye exam: Present: normal appearance, PERRL - ENT ENT exam: Present: normal exam, normal orophraynx, mucous membranes moist - Neck Neck exam: Present: normal inspection, full ROM. Absent: tenderness, meningis mus, lymphadenopathy, thyromegaly - Respiratory Respiratory exam: Present: normal lung sounds bilaterally - Cardiovascular Cardiovascular Exam: Present: regular rate, normal rhythm, normal heart sounds - GI/Abdominal GI/Abdominal exam: Present: soft, normal bowel sounds. Absent: distended, tenderness, guarding, rebound, rigid, organomegaly, mass, bruit, pulsatile mass, hernia - Extremities Exam Extremities exam: Present: normal inspection, full ROM, normal capillary refill. Absent: pedal edema, calf tenderness - Back Exam Back exam: Present: normal inspection, full ROM. Absent: CVA tenderness (R), CVA tenderness (L) - Neurological Exam Neurological exam: Present: alert, oriented X3, CN II-XII intact - Psychiatric Psychiatric exam: Present: normal mood - Skin Skin exam: Present: warm, intact, normal color ED Course Vital Signs 10/18/20 10/18/20 10/18/20 15:33 16:23 16:30 Temperature 98.2 F Pulse Rate 100 H 77 87 Respiratory 22 17 22 Rate Blood Pressure 151/91 121/74 Blood Pressure [Right] O2 Sat by Pulse 97 98 99 Oximetry 10/18/20 10/18/20 10/18/20 16:45 17:00 17:30 Temperature Pulse Rate 80 81 79 Respiratory 14 17 10 L Rate Blood Pressure 113/67 123/71 169/97 Blood Pressure [Right] O2 Sat by Pulse 100 99 Oximetry 10/18/20 10/18/20 10/18/20 19:06 19:15 19:30 Temperature Pulse Rate 78 77 80 Respiratory 15 17 20 Rate Blood Pressure 118/66 133/72 Blood Pressure 120/87 [Right] O2 Sat by Pulse 99 99 99 Oximetry 10/18/20 10/18/20 10/18/20 19:45 20:00 20:16 Temperature Pulse Rate 89 85 84 Respiratory 7 L 17 17 Rate Blood Pressure 104/74 126/71 90/46 Blood Pressure [Right] O2 Sat by Pulse 97 100 98 Oximetry 10/18/20 20:30 Temperature Pulse Rate 76 Respiratory 16 Rate Blood Pressure 105/67 Blood Pressure [Right] O2 Sat by Pulse 96 Oximetry ED Medical Decision Making - Lab Data Result diagrams: 10/18/20 20:35 10/18/20 15:39 - Radiology Data Radiology results: report reviewed - Medical Decision Making Patient is 40 years old female 4 para 3 with 1 miscarriage. Patient presented to the ER with a sudden onset of vaginal bleeding with clots that started this afternoon. Patient stated that she had 2 episode so far. Patient denied any . Patient also complaining of lower abdominal cramping. Patient denied any fever or chills. No nausea or vomiting. Patient has been evaluated by me several times. Patient still actively bleeding with clotting's. Patient received normal saline. Morphine and Zofran. Ultrasound showed no evidence of gestational sac. I discussed the patient with Dr. Quevedo and informed about the drop of H&H and dropping of the blood pressure. She stated that she is coming to take the patient to the OR. Critical Care Time: Yes Critical care time in (mins) excluding proc time.: 30 Critical care attestation.: If time is entered above; I have spent that time in minutes in the direct care of this critically ill patient, excluding procedure time. ED Disposition Clinical Impression: Acute anemia, Incomplete miscarriage Disposition: OP ADMIT IP TO THIS HOSP Is pt being admited?: Yes Condition: Stable Referrals: PRIMARY CARE, [Primary Care Provider] - 3-5 Days
[2020-10-18 16:22] LABS: Alanine Aminotransferase 9 units/L (7-56); Albumin 3.8 g/dL (3.9-5); Blood Urea Nitrogen 13 mg/dL (7-17); Calcium 8.7 mg/dL (8.4-10.2); Hemolysis Index 9
[2020-10-18 16:32] LABS: BUN/Creatinine Ratio 22
[2020-10-18] MEDS ORDERED: ONDANSETRON 4 MG/2 ML INJ IV ONE ×2 (17:14→20:31)
[2020-10-18] MEDS ORDERED: MORPHINE 4 MG/1 ML INJ IV ONE ×2 (17:14→19:57)
--- NOTE | 2020-10-18 19:46 | Ultrasound Report ---
ULTRASOUND OBSTETRIC INDICATION / CLINICAL INFORMATION: Abdominal pain and vaginal bleeding.. TECHNIQUE: Transabdominal. COMPARISON: None available. FINDINGS: No gestational sac or yolk sac is identified. Endometrial stripe measures 6.9 mm. ADNEXA: No significant abnormality. FREE FLUID: None. ADDITIONAL FINDINGS: None. IMPRESSION: No gestational sac or yolk sac identified in the uterus. Signer Name: Anastacio Lassiter MD Signed: 10/18/2020 7:41 PM Workstation Name: [id number]
[2020-10-18] MEDS ORDERED: SODIUM CHLORIDE 0.9% 1000 ML 1,000 ML ONE (20:21)
[2020-10-18] MEDS ORDERED: METHYLERGONOVINE MALEATE 0.2 MG/ML VIAL IM ONE ×2 (20:23→21:40)
[2020-10-18] MEDS ORDERED: ONDANSETRON 4 MG/2 ML INJ ONE ×2 (20:25→22:01)
[2020-10-18] MEDS ORDERED: miSOPROStol 200 MCG TAB PO ONE (20:30)
[2020-10-18 20:56] LABS: Hematocrit 29.9 % (30.3-42.9); Hemoglobin 10.2 gm/dl (10.1-14.3); Mean Corpuscular HGB Conc 34 % (30-34); Mean Corpuscular Volume 91 fl (79-97); Platelet Count 295 K/mm3 (140-440); Red Blood Count 3.29 M/mm3 (3.65-5.03); Red Cell Distribution Width 12.6 % (13.2-15.2)
[2020-10-18] MEDS ORDERED: SILVER NITRATE APPLICATOR 1 EA TP ONE (21:39)
--- NOTE | 2020-10-18 21:55 | Anesthesia Consultation ---
Anesthesia Consult and Med Hx Date of service: 10/18/20 - Airway Anesthetic Teeth Evaluation: Crowns ROM Head & Neck: Adequate Mental/Hyoid Distance: Adequate Mallampati Class: Class I Intubation Access Assessment: Probably Good - Pulmonary Exam CTA: Yes - Pre-Operative Health Status ASA Pre-Surgery Classification: ASA2, Emergency Proposed Anesthetic Plan: General - Pulmonary Hx Asthma: Yes Hx Respiratory Symptoms: No Hx Sleep Apnea: No - Cardiovascular System Hx Hypertension: No Hx Angina: No - Central Nervous System Hx Neuromuscular Disorder: No Hx Seizures: No Hx Psychiatric Problems: No - Gastrointestinal Hx Ulcer: No Hx Gastroesophageal Reflux Disease: No - Endocrine Hx Renal Disease: No Hx Liver Disease: No Hx Insulin Dependent Diabetes: Yes Hx Hypothyroidism: No Hx Hyperthyroidism: No - Hematic Hx Anemia: No Hx Sickle Cell Disease: No - Other Systems Hx Alcohol Use: No Hx Obesity: Yes (BMI 38.ikg)
--- NOTE | 2020-10-18 21:56 | Anesthesia Day of Surgery ---
Anesthesia Day of Surgery - Day of Surgery Patient Examined: Yes Patient H&P Reviewed: Yes Patient is NPO: Yes Beta Blockers: No Cardiac Clearance: No Pulmonary Clearance: No
[2020-10-18] MEDS ORDERED: LIDOCAINE MPF (2%) 20 MG/1 ML VIAL 5 ML ONE (22:01)
[2020-10-18] MEDS ORDERED: fentaNYL 100 MCG/2 ML INJ ONE (22:02)
[2020-10-18] MEDS ORDERED: propofoL 200 MG/20 ML VIAL IV ONE (22:02)
--- NOTE | 2020-10-18 22:15 | History and Physical Report ---
History of Present Illness Date of examination: 10/18/20 Chief complaint: vaginal bleeding History of present illness: 40yo with vaginal bleeding pelvic pain; BHCG~9000. Was seen in ED, HB dropped from 13-10.2. Patient remained hemodynamically stable and is consented in ED for suction D&C. US films reviewed; no gestational sac or pole noted. ES 6.3mm. NO adnexal masses or pathology. Past History Past Surgical History: section Family/Genetic History: none - Obstetrical History : 5 Medications and Allergies Allergies Allergy/AdvReac Type Severity Reaction Status Date / Time No Known Allergies Allergy Verified 02/17/19 14:57 Home Medications Medication Instructions Recorded Confirmed Last Taken Type Acetaminophen/Codeine [Tylenol #3] 1 tab PO Q6H PRN #20 tab 08/09/15 Unknown Rx Amoxicillin [Trimox CAP] 500 mg PO Q8H #30 capsule 08/09/15 Unknown Rx Insulin NPH/Regular [NovoLIN 70/30] 20 unit SQ BID #30 ml 08/09/15 Unknown Rx cephALEXin [Keflex] 500 mg PO Q12HR #20 cap 09/12/15 Unknown Rx DOXYCYCLINE Hyclate [Vibramycin 100 mg PO Q12HR #10 capsule 12/03/16 Unknown Rx CAP] Insulin NPH, Human [NovoLIN N] 20 unit SQ BID #100 ml 12/03/16 Unknown Rx Ketorolac [Toradol] 10 mg PO Q6H PRN #20 tablet 12/03/16 Unknown Rx oxyCODONE [Roxicodone] 5 mg PO Q6HR PRN #15 tablet 12/04/16 Unknown Rx Famotidine [Pepcid] 20 mg PO BID #30 tablet 11/13/18 Unknown Rx Nitrofurantoin Monohyd/M-Cryst 100 mg PO BID #13 capsule 11/13/18 Unknown Rx [Macrobid 100 mg Capsule] Ondansetron [Zofran Odt] 4 mg PO Q8HR PRN #20 tab.rapdis 11/13/18 Unknown Rx Vit-Fe Fumar-FA [ 1 tab PO QDAY #30 tablet 11/13/18 Unknown Rx Vitamin] Ondansetron [Zofran Odt] 4 mg PO Q12H PRN #30 tab.rapdis 02/17/19 Unknown Rx Ibuprofen [Motrin] 600 mg PO Q8H PRN #60 tablet 10/18/20 Unknown Rx oxyCODONE /ACETAMINOPHEN [Percocet 1 tab PO Q6HR PRN #20 tablet 10/18/20 Unknown Rx 5/325] Review of Systems All systems: negative (see HPI) - Vital Signs Vital signs: Vital Signs Temp Pulse Resp BP Pulse Ox 98.2 F 101 H 22 151/91 98 10/18/20 15:33 10/18/20 15:33 10/18/20 15:33 10/18/20 15:33 10/18/20 15:33 Temp Pulse Resp BP Pulse Ox 98.2 F 74 12 110/71 100 10/18/20 15:33 10/18/20 21:30 10/18/20 21:30 10/18/20 21:30 10/18/20 21:30 - Physical Exam Breasts: Positive: deferred Cardiovascular: Regular rate Lungs: Positive: Clear to auscultation Abdomen: Positive: normal appearance, normal bowel sounds Genitourinary (Female): Positive: normal external genitalia Uterus: Positive: normal size Anus/Rectum: Positive: normal perianal skin Deep Tendon Reflex Grade: Normal +2 Results Result Diagrams: 10/18/20 20:35 10/18/20 15:39 Abnormal lab results 10/18/20 10/18/20 10/18/20 Range/Units 15:39 15:39 15:39 WBC (4.5-11.0) K/mm3 RBC (3.65-5.03) M/mm3 Hct (30.3-42.9) % MCHC 35 H (30-34) % RDW 12.7 L (13.2-15.2) % Seg Neutrophils % 74.5 H (40.0-70.0) % Seg Neutrophils # 7.8 H (1.8-7.7) K/mm3 PT 12.0 L (12.2-14.9) Sec. Sodium 131 L (137-145) mmol/L Carbon Dioxide 21 L (22-30) mmol/L Glucose 210 H (65-100) mg/dL POC Glucose (70-105) mg/dL Albumin 3.8 L (3.9-5) g/dL HCG, Quant (0-4) mIU/mL 0210/18/20 10/18/20 Range/Units 16:45 20:35 21:44 WBC 12.2 H (4.5-11.0) K/mm3 RBC 3.29 L (3.65-5.03) M/mm3 Hct 29.9 L D (30.3-42.9) % MCHC (30-34) % RDW 12.6 L (13.2-15.2) % Seg Neutrophils % (40.0-70.0) % Seg Neutrophils # (1.8-7.7) K/mm3 PT (12.2-14.9) Sec. Sodium (137-145) mmol/L Carbon Dioxide (22-30) mmol/L Glucose (65-100) mg/dL POC Glucose 177 H (70-105) mg/dL Albumin (3.9-5) g/dL HCG, Quant 9938 H (0-4) mIU/mL All other labs normal. 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
[2020-10-18] MEDS ORDERED: ceFAZolin 1 GM VIAL ONE ×2 (22:44)
[2020-10-18] MEDS ORDERED: KETOROLAC 30 MG/1 ML INJ ONE (22:45)
[2020-10-18] MEDS ORDERED: SODIUM CHLORIDE 0.9% IRR 1,500 ML BOTTLE IR ONE (22:51)
[2020-10-18] MEDS ORDERED: PHENYLEPHRINE/NS 1,000 MCG/10 ML SYRINGE (OR USE) IV ONE (22:53)
--- NOTE | 2020-10-18 23:09 | Operative Report ---
Operative Report Operative Report: Preop diagnosis: Incomplete Postop diagnosis: Same Procedure: Suction dilation and curettage Surgeon: Dr. Tiffany Quevedo Anesthesia MAC Complications none EBL 350 ml IV fluids 1000 mL Urine output 200 mL, clear Drains none Findings: Products of conception in the endocervical canal and vaginal vault, no gross pelvic pathology noted on exam Procedure: Patient was consented in ED room 44, taken to the operating room where she received excellent MAC. She was then placed in the dorsal supine po sition, prepped and draped in a sterile fashion, and a timeout was verified. Exam under anesthesia revealed products of conception in the vaginal vault and endocervix. Uterus 6 weeks size with no adnexal pathology palpable. A red rubber catheter was used to straight cathed 200 cc of clear urine. A speculum was placed in the vaginal vault and a single-tooth tenaculum placed on the anterior lip of the cervix. A 10 mm curved curette was advanced through the endocervix to the uterus uterine fundus and a sharp suction curettage was performed. All products of conception were sent to pathology. Excellent hemostasis at the completion of the procedure. The speculum and the tenaculum were removed from the vagina and cervix respectively. All sponge needle and instrument counts were correct x2. There were no complications. Patient had no family to informed at the completion of the procedure. Patient was taken to the recovery area in stable condition. She will be discharged home from PACU. EBL 350 mL Nicole Quevedo MD
--- NOTE | 2020-10-18 23:14 | Post Anesthesia Evaluation ---
- Post Anesthesia Evaluation Patient Participated: Yes Airway Patent: Yes Stable Respiratory Function: Yes Nausea/Vomiting: No Temp > 96.8F: Yes Pain Manageable: Yes Adequeate Hydration: Yes Anesthesia Complications: No Block Receding Appropriately: Not Applicable Patient on Ventilator: No
[2020-10-19 00:17] VITALS: BP 127/63
== END 2020-10-18 23:52 | disposition home or self-care (01) ==
LOC: ED 14:48 → CATH 23:51 → OR 23:51 → CATH 23:52
PROVIDERS: ATTEND Internal Medicine
DX: O03.4 Incomplete spontaneous abortion without complication (principal); J45.909 Unspecified asthma, uncomplicated; E66.9 Obesity, unspecified; E11.9 Type 2 diabetes mellitus without complications; Z79.899 Other long term (current) drug therapy; Z98.891 History of uterine scar from previous surgery; Z83.3 Family history of diabetes mellitus; Z68.38 Body mass index [BMI] 38.0-38.9, adult
CPT/HCPCS: 36415; 36430; 59812; 76801; 80053; 82962; 84702; 84703; 85025; 85027; 85610; 85730; 86850; 86900; 86901; 88305; 96361; 96374; 96375; 96376; 99285; J0690; J1885; J2270; J2370; J2405; J2704; J2790; J3010; J7030; J2210

== ENCOUNTER 2021-12-06 11:22 | Inpatient (IN) | payer SELFPAY ==
[2021-12-06 12:38] LABS: Hematocrit 41.8 % (30.3-42.9); Hemoglobin 14.2 gm/dl (10.1-14.3); Mean Corpuscular HGB Conc 34 % (30-34); Mean Corpuscular Volume 88 fl (79-97); Platelet Count 306 K/mm3 (140-440); Red Blood Count 4.74 M/mm3 (3.65-5.03); Red Cell Distribution Width 13.1 % (13.2-15.2)
[2021-12-06] MEDS ORDERED: SODIUM CHLORIDE 0.9% 1000 ML 1,000 ML IV ONE ×2 (12:48)
[2021-12-06] MEDS ORDERED: ONDANSETRON 4 MG/2 ML INJ IV ONE ×2 (12:48→15:00)
[2021-12-06] MEDS ORDERED: MORPHINE 4 MG/1 ML INJ IV ONE ×2 (12:48→15:45)
[2021-12-06] MEDS ORDERED: FAMOTIDINE 20 MG/2 ML INJ IV ONE (12:48)
--- NOTE | 2021-12-06 12:52 | Emergency Department Report ---
<SERRATOAUGUST - Last Filed: 12/06/21 17:29> ED Abdominal Pain HPI - General Chief Complaint: Abdominal Pain Stated Complaint: RT SIDE PAIN Time Seen by Provider: 12/06/21 12:21 - Related Data Home Medications Medication Instructions Recorded Confirmed Last Taken Insulin Detemir [Levemir VIAL] 25 unit SQ BID 12/07/21 12/07/21 Unknown Lispro Insulin [HumaLOG] 11 unit SQ ACHS 12/07/21 12/07/21 Unknown Previous Rx's Medication Instructions Recorded Last Taken Type Ondansetron [Zofran Odt] 4 mg PO Q12H PRN #30 tab.rapdis 02/17/19 Unknown Rx Allergies Allergy/AdvReac Type Severity Reaction Status Date / Time No Known Allergies Allergy Verified 02/17/19 14:57 ED Past Medical Hx - Medications Home Medications: Home Medications Medication Instructions Recorded Confirmed Last Taken Type Ondansetron [Zofran Odt] 4 mg PO Q12H PRN #30 tab.rapdis 02/17/19 12/07/21 Unknown Rx Insulin Detemir [Levemir VIAL] 25 unit SQ BID 12/07/21 12/07/21 Unknown History Lispro Insulin [HumaLOG] 11 unit SQ ACHS 12/07/21 12/07/21 Unknown History ED Medical Decision Making - Lab Data Result diagrams: 12/06/21 12:08 12/06/21 12:08 Laboratory Results - last 24 hr 12/06/21 12/06/21 12/06/21 12:08 12:08 12:08 WBC 26.1 H RBC 4.74 Hgb 14.2 Hct 41.8 MCV 88 MCH 30 MCHC 34 RDW 13.1 L Plt Count 306 Add Manual Diff Complete Total Counted 100 Seg Neutrophils % Medical Office Technology Instructor Band Neutrophils % 0 Lymphocytes % (Manual) 2.0 L Reactive Lymphs % (Man) 1.0 Monocytes % (Manual) 1.0 Eosinophils % (Manual) 0 Basophils % (Manual) 0 Metamyelocytes % 0 Myelocytes % 0 Promyelocytes % 0 Blast Cells % 0 Nucleated RBC % Not Reportable Seg Neutrophils # Man 25.1 H Band Neutrophils # 0.0 Lymphocytes # (Manual) 0.5 L Abs React Lymphs (Man) 0.3 Monocytes # (Manual) 0.3 Eosinophils # (Manual) 0.0 Basophils # (Manual) 0.0 Metamyelocytes # 0.0 Myelocytes # 0.0 Promyelocytes # 0.0 Blast Cells # 0.0 WBC Morphology Not Reportable TNR Hypersegmented Neuts Not Reportable Hyposegmented Neuts Not Reportable Hypogranular Neuts Not Reportable Smudge Cells Not Reportable Toxic Granulation Not Reportable Toxic Vacuolation Not Reportable Dohle Bodies Not Reportable Pelger-Huet Anomaly Not Reportable Shannon Rods Not Reportable Platelet Estimate Consistent w auto Clumped Platelets Not Reportable Plt Clumps, EDTA Not Reportable Large Platelets Not Reportable Giant Platelets Few Platelet Satelliting Not Reportable Plt Morphology Comment Not Reportable RBC Morphology Normal Dimorphic RBCs Not Reportable Polychromasia Not Reportable Hypochromasia Not Reportable Poikilocytosis Not Reportable Anisocytosis Not Reportable Microcytosis Not Reportable Macrocytosis Not Reportable Spherocytes Not Reportable Pappenheimer Bodies Not Reportable Sickle Cells Not Reportable Target Cells Not Reportable Tear Drop Cells Not Reportable Ovalocytes Not Reportable Helmet Cells Not Reportable Leach-Derwood Bodies Not Reportable [place] Rings Not Reportable [place] Cells Not Reportable Bite Cells Not Reportable Crenated Cell Not Reportable Elliptocytes Not Reportable Acanthocytes (Spur) Not Reportable Rouleaux Not Reportable Hemoglobin C Crystals Not Reportable Schistocytes Not Reportable Malaria parasites Not Reportable Armando Bodies Not Reportable Hem Pathologist Commnt No VBG pH Sodium 128 L Potassium 3.9 Chloride 90.1 L Carbon Dioxide 18 L Anion Gap 24 BUN 23 H Creatinine 0.8 Estimated GFR > 60 BUN/Creatinine Ratio 29 Glucose 654 H* Calcium 9.5 Phosphorus Magnesium Total Bilirubin 2.10 H AST 7 ALT 6 L Alkaline Phosphatase 114 Total Protein 8.2 Albumin 3.6 L Albumin/Globulin Ratio 0.8 Lipase 18 HCG, Qual Urine Color Urine Turbidity Urine pH Ur Specific [place] Urine Protein Urine Glucose (UA) Urine Ketones Urine Blood Urine Nitrite Urine Bilirubin Urine Urobilinogen Ur Leukocyte Esterase Urine WBC (Auto) Urine RBC (Auto) U Epithel Cells (Auto) Urine Bacteria (Auto) Urine WBC Clumps Urine Mucus 12/06/21 12/06/21 12/06/21 12:26 13:17 13:17 WBC RBC Hgb Hct MCV MCH MCHC RDW Plt Count Add Manual Diff Total Counted Seg Neutrophils % Band Neutrophils % Lymphocytes % (Manual) Reactive Lymphs % (Man) Monocytes % (Manual) Eosinophils % (Manual) Basophils % (Manual) Metamyelocytes % Myelocytes % Promyelocytes % Blast Cells % Nucleated RBC % Seg Neutrophils # Man Band Neutrophils # Lymphocytes # (Manual) Abs React Lymphs (Man) Monocytes # (Manual) Eosinophils # (Manual) Basophils # (Manual) Metamyelocytes # Myelocytes # Promyelocytes # Blast Cells # WBC Morphology Hypersegmented Neuts Hyposegmented Neuts Hypogranular Neuts Smudge Cells Toxic Granulation Toxic Vacuolation Dohle Bodies Pelger-Huet Anomaly Shannon Rods Platelet Estimate Clumped Platelets Plt Clumps, EDTA Large Platelets Giant Platelets Platelet Satelliting Plt Morphology Comment RBC Morphology Dimorphic RBCs Polychromasia Hypochromasia Poikilocytosis Anisocytosis Microcytosis Macrocytosis Spherocytes Pappenheimer Bodies Sickle Cells Target Cells Tear Drop Cells Ovalocytes Helmet Cells Leach-Derwood Bodies [place] Rings [place] Cells Bite Cells Crenated Cell Elliptocytes Acanthocytes (Spur) Rouleaux Hemoglobin C Crystals Schistocytes Malaria parasites Armando Bodies Hem Pathologist Commnt VBG pH 7.475 H Sodium Potassium Chloride Carbon Dioxide Anion Gap BUN Creatinine Estimated GFR BUN/Creatinine Ratio Glucose Calcium Phosphorus 3.60 Magnesium 2.10 Total Bilirubin AST ALT Alkaline Phosphatase Total Protein Albumin Albumin/Globulin Ratio Lipase HCG, Qual Negative Urine Color Urine Turbidity Urine pH Ur Specific [place] Urine Protein Urine Glucose (UA) Urine Ketones Urine Blood Urine Nitrite Urine Bilirubin Urine Urobilinogen Ur Leukocyte Esterase Urine WBC (Auto) Urine RBC (Auto) U Epithel Cells (Auto) Urine Bacteria (Auto) Urine WBC Clumps Urine Mucus 12/06/21 Unknown WBC RBC Hgb Hct MCV MCH MCHC RDW Plt Count Add Manual Diff Total Counted Seg Neutrophils % Band Neutrophils % Lymphocytes % (Manual) Reactive Lymphs % (Man) Monocytes % (Manual) Eosinophils % (Manual) Basophils % (Manual) Metamyelocytes % Myelocytes % Promyelocytes % Blast Cells % Nucleated RBC % Seg Neutrophils # Man Band Neutrophils # Lymphocytes # (Manual) Abs React Lymphs (Man) Monocytes # (Manual) Eosinophils # (Manual) Basophils # (Manual) Metamyelocytes # Myelocytes # Promyelocytes # Blast Cells # WBC Morphology Hypersegmented Neuts Hyposegmented Neuts Hypogranular Neuts Smudge Cells Toxic Granulation Toxic Vacuolation Dohle Bodies Pelger-Huet Anomaly Shannon Rods Platelet Estimate Clumped Platelets Plt Clumps, EDTA Large Platelets Giant Platelets Platelet Satelliting Plt Morphology Comment RBC Morphology Dimorphic RBCs Polychromasia Hypochromasia Poikilocytosis Anisocytosis Microcytosis Macrocytosis Spherocytes Pappenheimer Bodies Sickle Cells Target Cells Tear Drop Cells Ovalocytes Helmet Cells Leach-Derwood Bodies [place] Rings Kasey Cells Bite Cells Crenated Cell Elliptocytes Acanthocytes (Spur) Rouleaux Hemoglobin C Crystals Schistocytes Malaria parasites Armando Bodies Hem Pathologist Commnt VBG pH Sodium Potassium Chloride Carbon Dioxide Anion Gap BUN Creatinine Estimated GFR BUN/Creatinine Ratio Glucose Calcium Phosphorus Magnesium Total Bilirubin AST ALT Alkaline Phosphatase Total Protein Albumin Albumin/Globulin Ratio Lipase HCG, Qual Urine Color Yellow Urine Turbidity Cloudy Urine pH 6.0 Ur Specific [place] 1.028 Urine Protein 100 mg/dl Urine Glucose (UA) >=500 Urine Ketones 20 Urine Blood Lg Urine Nitrite Neg Urine Bilirubin Neg Urine Urobilinogen < 2.0 Ur Leukocyte Esterase Lg Urine WBC (Auto) > 182.0 H Urine RBC (Auto) 6.0 U Epithel Cells (Auto) 3.0 Urine Bacteria (Auto) 1+ Urine WBC Clumps 3+ Urine Mucus Few - Radiology Data Patient Name: BARBARA CASTANEDA Gender: Female Date of : 1980 Referring Provider: THERESA GOLDEN Organization: [facility] Accession Number: [id number] Requested Date: December 06, 2021 12:49 Report Status: Final Requested Procedure: 1 Procedure Description: US abdomen limited Modality: US Findings Reporting MD: Onel Preston Dictation Time: December 06, 2021 14:18 Client Partner: Not available Patented Hogshead Assembler Date: ULTRASOUND ABDOMEN, LIMITED (RIGHT UPPER QUADRANT) INDICATION: right upper quadrant pain COMPARISON: None available. LIMITATIONS: None FINDINGS: Pancreas: Visualized portion shows no significant abnormality. Liver: Normal. Gallbladder: Normal. Bile ducts: Normal. Common Bile Duct measures 3 mm. Right Kidney: Visualized portions show no abnormality. Free fluid: None. Additional Findings: None. IMPRESSION: No acute abnormalities are seen. Signer Name: Onel Preston MD Signed: 12/06/2021 2:18 PM Workstation Name: [id number] Patient Name: BARBARA CASTANEDA Gender: Female Date of : 1980 Referring Provider: THERESA GOLDEN Organization: [facility] Accession Number: [id number] Requested Date: December 06, 2021 14:57 Report Status: Final Requested Procedure: 1 Procedure Description: XR chest routine 2V Modality: XR Findings Reporting MD: Onel Preston Dictation Time: December 06, 2021 15:19 Client Partner: Not available Patented Hogshead Assembler Date: CHEST 2 VIEWS INDICATION / CLINICAL INFORMATION: Leukocytosis, right upper quadrant pain STUDY TIME: 1602 COMPARISON: 02/18/2010 lateral view only FINDINGS: SUPPORT DEVICES: None. HEART / MEDIASTINUM: No significant abnormality. LUNGS / PLEURA: No significant acute pulmonary or pleural abnormality. No pneumothorax. ADDITIONAL FINDINGS: No significant additional findings. Signer Name: Onel Preston MD Signed: 12/06/2021 3:19 PM Workstation Name: [id number] - Medical Decision Making 1. Acute pyelonephritis: Patient has persistent nausea. I am concerned that she will not be able to tolerate oral antibiotics. IV ceftriaxone initiated emergency department. Also with significant leukocytosis and tachycardia there is a 30% incidence of bacteremia with pyelonephritis. 2. Hyperglycemic hyperosmolar syndrome, insulin bolus and normal saline fluid boluses initiated emergency department. Patient mated to the hospital service. ED Disposition Clinical Impression: Acute pyelonephritis, Hyperosmolar hyperglycemic state ([facility]) Disposition: 09 ADMITTED INPATIENT Is pt being admited?: Yes Does the pt Need Aspirin: No Condition: Stable <SHREYA DE JESUS S - Last Filed: 12/06/21 20:20> ED Medical Decision Making - Lab Data Result diagrams: 12/06/21 12:08 12/06/21 12:08 <THERESA GOLDEN - Last Filed: 12/08/21 06:53> ED Abdominal Pain HPI - General Source: patient Mode of arrival: Wheelchair Limitations: No Limitations - History of Present Illness Initial Comments: 41-year-old female the past medical history of obesity, insulin-dependent diabetes, possible gallstones, x3, and asthma presents to the hospital complaining of right upper quadrant pain with nausea and vomiting for the past 3 days. Pain is sharp, constant, worse with palpation and movement. No alleviating factors reported. Patient has not taken her insulin or checked her sugar in the last 3 days reports having a dry mouth. She denies dysuria, hematuria, hematemesis, or fever. ED Review of Systems ROS: Stated complaint: RT SIDE PAIN Other details as noted in HPI Comment: All other systems reviewed and negative ED Past Medical Hx - Past Medical History Previous Medical History?: Yes Hx Hypertension: No Hx Diabetes: Yes Hx Deep Vein Thrombosis: No Hx Liver Disease: No Hx Renal Disease: No Hx Sickle Cell Disease: No Hx Seizures: No Hx Asthma: Yes Hx HIV: No Additional medical history: Obesity - Surgical History Past Surgical History?: Yes Additional Surgical History: 2011, abdominal abscess - Social History Smoking Status: Former Smoker Substance Use Type: Alcohol ED Physical Exam - General Limitations: No Limitations - Other Other exam information: General: Mild distress secondary to pain Head: Atraumatic Eyes: normal appearance ENT: Dry mucous membrane Neck: Normal appearance, no midline tenderness Chest: Clear to auscultation bilaterally CV: Regular rate and rhythm Abdomen: Soft, normal bowel sounds, right upper quadrant tenderness, no rebound or guarding Back: Normal inspection Extremity: Normal inspection, full range of motion Neuro: Alert O x 3, no facial asymmetry, speech clear, no gross motor sensory deficit Psych: Appropriate behavior Skin: No rash ED Course Vital Signs 12/06/21 12/06/21 12/06/21 11:32 11:37 13:55 Temperature 97.9 F Pulse Rate 110 H Pulse Rate [ Right Brachial] Respiratory 22 18 Rate Blood Pressure 123/75 O2 Sat by Pulse 100 97 99 Oximetry 12/06/21 12/06/21 12/06/21 14:01 14:15 15:01 Temperature Pulse Rate 91 H 94 H 137 H Pulse Rate [ Right Brachial] Respiratory 18 17 24 Rate Blood Pressure 143/84 143/84 143/84 O2 Sat by Pulse 99 97 98 Oximetry 12/06/21 12/06/21 12/06/21 15:15 15:31 15:45 Temperature Pulse Rate 127 H 127 H 127 H Pulse Rate [ Right Brachial] Respiratory 17 24 19 Rate Blood Pressure 143/84 143/84 143/84 O2 Sat by Pulse 97 98 99 Oximetry 12/06/21 12/06/21 12/06/21 16:03 16:15 16:31 Temperature Pulse Rate 122 H 122 H 119 H Pulse Rate [ Right Brachial] Respiratory 20 24 22 Rate Blood Pressure 143/84 143/84 132/73 O2 Sat by Pulse 98 97 98 Oximetry 12/06/21 12/06/21 12/06/21 16:45 17:01 17:15 Temperature Pulse Rate 116 H 118 H 119 H Pulse Rate [ Right Brachial] Respiratory 20 22 22 Rate Blood Pressure 132/73 134/76 134/76 O2 Sat by Pulse 99 97 97 Oximetry 12/06/21 12/06/21 12/06/21 17:31 17:45 18:01 Temperature Pulse Rate 120 H 113 H 112 H Pulse Rate [ Right Brachial] Respiratory 11 L 10 L 11 L Rate Blood Pressure 134/76 134/76 132/70 O2 Sat by Pulse 98 98 97 Oximetry 12/06/21 23:01 Temperature Pulse Rate Pulse Rate [ 114 H Right Brachial] Respiratory 20 Rate Blood Pressure O2 Sat by Pulse 98 Oximetry - Reevaluation(s) Reevaluation #1: 12/06/21 14:56 Patient present hyperglycemia secondary to insulin noncompliance for the last 3 days without signs of DKA as per pH. UA pending. At this time patient has received morphine, Pepcid, Zofran, and 1 L normal saline with improvement in symptoms as per nurse. She has yet to receive IV insulin and additional IV fluids. Patient is currently in ultrasound therefore I have been unable to provide an update at this time. Patient will be signed out to oncoming provider Dr. Serrato to follow-up ultrasound report, UA result, and response to insulin with goal glucose in the 200s prior to discharge. Patient significant leukocytosis without identifiable cause at this time. Chest x-ray will also be ordered 12/06/21 15:00 Patient returned from ultrasound at this time. Preliminary result unremarkable as per tech. Official report pending. [facility] reports that patient was vomiting and ultrasound x1 ED Medical Decision Making - Lab Data Result diagrams: 12/07/21 04:09 12/07/21 04:09 - Radiology Data Radiology results: report reviewed CT ABDOMEN AND PELVIS WITH CONTRAST INDICATION: Right abdominal pain, nausea, vomiting CONTRAST: 100 cc Omnipaque 300 IV COMPARISON: None available. All CT scans at this location are performed using CT dose reduction for ALARA by means of automated exposure control. FINDINGS: Lung bases clear. No pneumoperitoneum. Gallbladder and bile ducts normal. No abdominal masses. No urinary obstruction. No bowel obstruction. Appendix normal. No inflammatory changes. No free fluid. No pelvic masses. Several small nodes are seen in the retroperitoneum measuring up to short axis diameter of 9 mm. These are slightly prominent. Slightly prominent nodes also seen bilaterally in external iliac zones measuring up to short axis diameter of 5 mm. IMPRESSION: 1. No acute abnormalities are seen 2. Minimal retroperitoneal and pelvic sharif prominence. Probably not significant but recommend follow-up. - Differential Diagnosis UTI, DKA, biliary colic, cholecystitis, pancreatitis, renal colic Critical Care Time: No Critical care attestation.: If time is entered above; I have spent that time in minutes in the direct care of this critically ill patient, excluding procedure time. ED Disposition Is pt being admited?: Yes
[2021-12-06 13:01] LABS: Alanine Aminotransferase 6 units/L (7-56); Albumin 3.6 g/dL (3.9-5); BUN/Creatinine Ratio 29; Blood Urea Nitrogen 23 mg/dL (7-17); Calcium 9.5 mg/dL (8.4-10.2); Hemolysis Index 4
[2021-12-06] MEDS ORDERED: INSULIN REGULAR, HUMAN 100 UNITS/1 ML IV ONE (13:07)
[2021-12-06] MEDS ORDERED: POTASSIUM CHLORIDE 10 MEQ 10 MEQ/100 ML BAG IV SCH (14:00)
--- NOTE | 2021-12-06 14:15 | Cat Scan Report ---
CT ABDOMEN AND PELVIS WITH CONTRAST INDICATION: Right abdominal pain, nausea, vomiting CONTRAST: 100 cc Omnipaque 300 IV COMPARISON: None available. All CT scans at this location are performed using CT dose reduction for ALARA by means of automated e xposure control. FINDINGS: Lung bases clear. No pneumoperitoneum. Gallbladder and bile ducts normal. No abdominal mass es. No urinary obstruction. No bowel obstruction. Appendix normal. No inflammatory changes. No free f luid. No pelvic masses. Several small nodes are seen in the retroperitoneum measuring up to short axis diameter of 9 mm. Thes e are slightly prominent. Slightly prominent nodes also seen bilaterally in external iliac zones rabia uring up to short axis diameter of 5 mm. IMPRESSION: 1. No acute abnormalities are seen 2. Minimal retroperitoneal and pelvic sharif prominence. Probably not significant but recommend follow -up. Signer Name: Onel Preston MD Signed: 12/06/2021 2:10 PM Workstation Name: [id number]
[2021-12-06 14:41] LABS: Basophils % (Manual) 0 % (0.0-1.8); Eosinophils % (Manual) 0 % (0.0-4.3); Giant Platelets Few; Platelet Estimate Consistent w Auto; RBC Morphology Normal; Total Cells Counted 100
[2021-12-06] MEDS ORDERED: POTASSIUM CHLORIDE ER 20 MEQ TAB PO ONE (14:55)
[2021-12-06 15:07] LABS: Bacteria,Urine 1+ /HPF (Negative); Bilirubin,Urine NEG (Negative); Blood,Urine LG (Negative); Color,Urine Yellow (Yellow); Mucus,Urine FEW /HPF; Urobilinogen,Urine < 2.0 mg/dL (<2.0)
[2021-12-06 15:18] LABS: WBC,Urine > 182.0 /HPF (0.0-6.0)
--- NOTE | 2021-12-06 15:22 | Ultrasound Report ---
ULTRASOUND ABDOMEN, LIMITED (RIGHT UPPER QUADRANT) INDICATION: right upper quadrant pain COMPARISON: None available. LIMITATIONS: None FINDINGS: Pancreas: Visualized portion shows no significant abnormality. Liver: Normal. Gallbladder: Normal. Bile ducts: Normal. Common Bile Duct measures 3 mm. Right Kidney: Visualized portions show no abnormality. Free fluid: None. Additional Findings: None. IMPRESSION: No acute abnormalities are seen. Signer Name: Onel Preston MD Signed: 12/06/2021 3:18 PM Workstation Name: [id number]
--- NOTE | 2021-12-06 16:23 | XRay Report ---
CHEST 2 VIEWS INDICATION / CLINICAL INFORMATION: Leukocytosis, right upper quadrant pain STUDY TIME: 1602 COMPARISON: 02/18/2010 lateral view only FINDINGS: SUPPORT DEVICES: None. HEART / MEDIASTINUM: No significant abnormality. LUNGS / PLEURA: No significant acute pulmonary or pleural abnormality. No pneumothorax. ADDITIONAL FINDINGS: No significant additional findings. Signer Name: Onel Preston MD Signed: 12/06/2021 4:19 PM Workstation Name: [id number]
[2021-12-06] MEDS: cefTRIAXone/NS 2 GM/100 ML 2 GM/100 ML BAG IV ONE (19:33)
[2021-12-06] MEDS ORDERED: INSULIN REGULAR, HUMAN 100 UNITS/1 ML ONE (20:00)
[2021-12-06] MEDS: INSULIN REGULAR, HUMAN 100 UNITS/1 ML IV ONE (20:22)
--- NOTE | 2021-12-06 20:56 | History and Physical Report ---
History of Present Illness Date of examination: 12/06/21 Date of admission: December 06, 2021 Chief complaint: Right flank pain History of present illness: - History of Present Illness Initial Comments: 41-year-old female the past medical history of obesity, insulin-dependent diabetes, possible gallstones, x3, and asthma presents to the hospital complaining of right upper quadrant pain with nausea and vomiting for the past 3 days. Pain is sharp, constant, worse with palpation and movement. No alleviating factors reported. Patient has not taken her insulin or checked her sugar in the last 3 days reports having a dry mouth. She denies dysuria, hematuria, hematemesis, or fever. - Related Data Previous Rx's Medication Instructions Recorded Last Taken Type Acetaminophen/Codeine [Tylenol #3] 1 tab PO Q6H PRN #20 tab 08/09/15 Unknown Rx Amoxicillin [Trimox CAP] 500 mg PO Q8H #30 capsule 08/09/15 Unknown Rx Insulin NPH/Regular [NovoLIN 70/30] 20 unit SQ BID #30 ml 08/09/15 Unknown Rx cephALEXin [Keflex] 500 mg PO Q12HR #20 cap 09/12/15 Unknown Rx DOXYCYCLINE Hyclate [Vibramycin 100 mg PO Q12HR #10 capsule 12/03/16 Unknown Rx CAP] Insulin NPH, Human [NovoLIN N] 20 unit SQ BID #100 ml 12/03/16 Unknown Rx Ketorolac [Toradol] 10 mg PO Q6H PRN #20 tablet 12/03/16 Unknown Rx oxyCODONE [Roxicodone] 5 mg PO Q6HR PRN #15 tablet 12/04/16 Unknown Rx Famotidine [Pepcid] 20 mg PO BID #30 tablet 11/13/18 Unknown Rx Nitrofurantoin Monohyd/M-Cryst 100 mg PO BID #13 capsule 11/13/18 Unknown Rx [Macrobid 100 mg Capsule] Ondansetron [Zofran Odt] 4 mg PO Q8HR PRN #20 tab.rapdis 11/13/18 Unknown Rx Vit-Fe Fumar-FA [ 1 tab PO QDAY #30 tablet 11/13/18 Unknown Rx Vitamin] Ondansetron [Zofran Odt] 4 mg PO Q12H PRN #30 tab.rapdis 02/17/19 Unknown Rx Ibuprofen [Motrin] 600 mg PO Q8H PRN #60 tablet 10/18/20 Unknown Rx oxyCODONE /ACETAMINOPHEN [Percocet 1 tab PO Q6HR PRN #20 tablet 10/18/20 Unknown Rx 5/325] Allergies Allergy/AdvReac Type Severity Reaction Status Date / Time No Known Allergies Allergy Verified 02/17/19 14:57 - Past Medical History --Previous Medical History?: Yes --Diabetes: Yes --Asthma: Yes --Additional medical history: Obesity - Surgical History Past Surgical History?: Yes Additional Surgical History: 2011, abdominal abscess - Social History Smoking Status: Former Smoker Substance Use Type: Alcohol - Medications Home Medications: Home Medications Medication Instructions Recorded Confirmed Last Taken Type Acetaminophen/Codeine [Tylenol #3] 1 tab PO Q6H PRN #20 tab 08/09/15 Unknown Rx Amoxicillin [Trimox CAP] 500 mg PO Q8H #30 capsule 08/09/15 Unknown Rx Insulin NPH/Regular [NovoLIN 70/30] 20 unit SQ BID #30 ml 08/09/15 Unknown Rx cephALEXin [Keflex] 500 mg PO Q12HR #20 cap 09/12/15 Unknown Rx DOXYCYCLINE Hyclate [Vibramycin 100 mg PO Q12HR #10 capsule 12/03/16 Unknown Rx CAP] Insulin NPH, Human [NovoLIN N] 20 unit SQ BID #100 ml 12/03/16 Unknown Rx Ketorolac [Toradol] 10 mg PO Q6H PRN #20 tablet 12/03/16 Unknown Rx oxyCODONE [Roxicodone] 5 mg PO Q6HR PRN #15 tablet 12/04/16 Unknown Rx Famotidine [Pepcid] 20 mg PO BID #30 tablet 11/13/18 Unknown Rx Nitrofurantoin Monohyd/M-Cryst 100 mg PO BID #13 capsule 11/13/18 Unknown Rx [Macrobid 100 mg Capsule] Ondansetron [Zofran Odt] 4 mg PO Q8HR PRN #20 tab.rapdis 11/13/18 Unknown Rx Vit-Fe Fumar-FA [ 1 tab PO QDAY #30 tablet 11/13/18 Unknown Rx Vitamin] Ondansetron [Zofran Odt] 4 mg PO Q12H PRN #30 tab.rapdis 06/08/19 Unknown Rx Ibuprofen [Motrin] 600 mg PO Q8H PRN #60 tablet 10/18/20 Unknown Rx oxyCODONE /ACETAMINOPHEN [Percocet 1 tab PO Q6HR PRN #20 tablet 10/18/20 Unknown Rx 5/325] Review of Systems Comment: All other systems reviewed and negative Medications and Allergies Allergies Allergy/AdvReac Type Severity Reaction Status Date / Time No Known Allergies Allergy Verified 02/17/19 14:57 Home Medications Medication Instructions Recorded Confirmed Last Taken Type Ondansetron [Zofran Odt] 4 mg PO Q12H PRN #30 tab.rapdis 02/17/19 12/07/21 Unknown Rx Insulin Detemir [Levemir VIAL] 25 unit SQ BID 12/07/21 12/07/21 Unknown History Lispro Insulin [HumaLOG] 11 unit SQ ACHS 12/07/21 12/07/21 Unknown History Exam - Constitutional Vitals: Temp Pulse Resp BP Pulse Ox 97.9 F 112 H 11 L 132/70 97 12/06/21 11:32 12/06/21 18:01 12/06/21 18:01 12/06/21 18:01 12/06/21 18:01 General appearance: Present: no acute distress, well-nourished - EENT Eyes: Present: PERRL ENT: hearing intact, clear oral mucosa - Neck Neck: Present: supple, normal ROM - Respiratory Respiratory effort: normal Respiratory: bilateral: CTA - Cardiovascular Heart rate: 78 Rhythm: regular Heart Sounds: Present: S1 & S2. Absent: rub, click - Extremities Extremities: no ischemia, pulses symmetrical, No edema Peripheral Pulses: within normal limits - Abdominal General gastrointestinal: Present: soft, non-tender, non-distended, normal bowel sounds Localized gastrointestinal: tender: suprapubic Female genitourinary: Present: other (Right flank pain and tenderness) - Integumentary Integumentary: Present: clear, warm, dry - Musculoskeletal Musculoskeletal: gait normal, strength equal bilaterally - Psychiatric Psychiatric: appropriate mood/affect, intact judgment & insight - Neurologic Neurologic: CNII-XII intact, moves all extremities Results - Labs CBC & Chem 7: 12/07/21 04:09 12/07/21 04:09 Labs: Laboratory Last Values WBC 26.1 K/mm3 (4.5-11.0) H 12/06/21 12:08 RBC 4.74 M/mm3 (3.65-5.03) 12/06/21 12:08 Hgb 14.2 gm/dl (10.1-14.3) 12/06/21 12:08 Hct 41.8 % (30.3-42.9) 12/06/21 12:08 MCV 88 fl (79-97) 12/06/21 12:08 MCH 30 pg (28-32) 12/06/21 12:08 MCHC 34 % (30-34) 12/06/21 12:08 RDW 13.1 % (13.2-15.2) L 12/06/21 12:08 Plt Count 306 K/mm3 (140-440) 12/06/21 12:08 Add Manual Diff Complete 12/06/21 12:08 Total Counted 100 12/06/21 12:08 Seg Neutrophils % Electroplater 12/06/21 12:08 Band Neutrophils % 0 % 12/06/21 12:08 Lymphocytes % (Manual) 2.0 % (13.4-35.0) L 12/06/21 12:08 Reactive Lymphs % (Man) 1.0 % 12/06/21 12:08 Monocytes % (Manual) 1.0 % (0.0-7.3) 12/06/21 12:08 Eosinophils % (Manual) 0 % (0.0-4.3) 12/06/21 12:08 Basophils % (Manual) 0 % (0.0-1.8) 12/06/21 12:08 Metamyelocytes % 0 % 12/06/21 12:08 Myelocytes % 0 % 12/06/21 12:08 Promyelocytes % 0 % 12/06/21 12:08 Blast Cells % 0 % 12/06/21 12:08 Nucleated RBC % Not Reportable 12/06/21 12:08 Seg Neutrophils # Man 25.1 K/mm3 (1.8-7.7) H 12/06/21 12:08 Band Neutrophils # 0.0 K/mm3 12/06/21 12:08 Lymphocytes # (Manual) 0.5 K/mm3 (1.2-5.4) L 12/06/21 12:08 Abs React Lymphs (Man) 0.3 K/mm3 12/06/21 12:08 Monocytes # (Manual) 0.3 K/mm3 (0.0-0.8) 12/06/21 12:08 Eosinophils # (Manual) 0.0 K/mm3 (0.0-0.4) 12/06/21 12:08 Basophils # (Manual) 0.0 K/mm3 (0.0-0.1) 12/06/21 12:08 Metamyelocytes # 0.0 K/mm3 12/06/21 12:08 Myelocytes # 0.0 K/mm3 12/06/21 12:08 Promyelocytes # 0.0 K/mm3 12/06/21 12:08 Blast Cells # 0.0 K/mm3 12/06/21 12:08 WBC Morphology Not Reportable 12/06/21 12:08 WBC Morphology TNR 12/06/21 12:08 Hypersegmented Neuts Not Reportable 12/06/21 12:08 Hyposegmented Neuts Not Reportable 12/06/21 12:08 Hypogranular Neuts Not Reportable 12/06/21 12:08 Smudge Cells Not Reportable 12/06/21 12:08 Toxic Granulation Not Reportable 12/06/21 12:08 Toxic Vacuolation Not Reportable 12/06/21 12:08 Dohle Bodies Not Reportable 12/06/21 12:08 Pelger-Huet Anomaly Not Reportable 12/06/21 12:08 Shannon Rods Not Reportable 12/06/21 12:08 Platelet Estimate Consistent w auto 12/06/21 12:08 Clumped Platelets Not Reportable 12/06/21 12:08 Plt Clumps, EDTA Not Reportable 12/06/21 12:08 Large Platelets Not Reportable 12/06/21 12:08 Giant Platelets Few 12/06/21 12:08 Platelet Satelliting Not Reportable 12/06/21 12:08 Plt Morphology Comment Not Reportable 12/06/21 12:08 RBC Morphology Normal 12/06/21 12:08 Dimorphic RBCs Not Reportable 12/06/21 12:08 Polychromasia Not Reportable 12/06/21 12:08 Hypochromasia Not Reportable 12/06/21 12:08 Poikilocytosis Not Reportable 12/06/21 12:08 Anisocytosis Not Reportable 12/06/21 12:08 Microcytosis Not Reportable 12/06/21 12:08 Macrocytosis Not Reportable 12/06/21 12:08 Spherocytes Not Reportable 12/06/21 12:08 Pappenheimer Bodies Not Reportable 12/06/21 12:08 Sickle Cells Not Reportable 12/06/21 12:08 Target Cells Not Reportable 12/06/21 12:08 Tear Drop Cells Not Reportable 12/06/21 12:08 Ovalocytes Not Reportable 12/06/21 12:08 Helmet Cells Not Reportable 12/06/21 12:08 [place] Bodies Not Reportable 12/06/21 12:08 [place] Rings Not Reportable 12/06/21 12:08 [place] Cells Not Reportable 12/06/21 12:08 Bite Cells Not Reportable 12/06/21 12:08 Crenated Cell Not Reportable 12/06/21 12:08 Elliptocytes Not Reportable 12/06/21 12:08 Acanthocytes (Spur) Not Reportable 12/06/21 12:08 Rouleaux Not Reportable 12/06/21 12:08 Hemoglobin C Crystals Not Reportable 12/06/21 12:08 Schistocytes Not Reportable 12/06/21 12:08 Malaria parasites Not Reportable 12/06/21 12:08 Armando Bodies Not Reportable 12/06/21 12:08 Hem Pathologist Commnt No 12/06/21 12:08 VBG pH 7.475 (7.320-7.420) H 12/06/21 13:17 Sodium 128 mmol/L (137-145) L 12/06/21 12:08 Potassium 3.9 mmol/L (3.6-5.0) 12/06/21 12:08 Chloride 90.1 mmol/L (98-107) L 12/06/21 12:08 Carbon Dioxide 18 mmol/L (22-30) L 12/06/21 12:08 Anion Gap 24 mmol/L 12/06/21 12:08 BUN 23 mg/dL (7-17) H 12/06/21 12:08 Creatinine 0.8 mg/dL (0.6-1.2) 12/06/21 12:08 Estimated GFR > 60 ml/min 12/06/21 12:08 BUN/Creatinine Ratio 29 % 12/06/21 12:08 Glucose 654 mg/dL (65-100) H* 12/06/21 12:08 POC Glucose 428 mg/dL (70-105) H 12/06/21 19:23 Calcium 9.5 mg/dL (8.4-10.2) 12/06/21 12:08 Phosphorus 3.60 mg/dL (2.5-4.5) 12/06/21 13:17 Magnesium 2.10 mg/dL (1.7-2.3) 12/06/21 13:17 Total Bilirubin 2.10 mg/dL (0.1-1.2) H 12/06/21 12:08 AST 7 units/L (5-40) 12/06/21 12:08 ALT 6 units/L (7-56) L 12/06/21 12:08 Alkaline Phosphatase 114 units/L (35-129) 12/06/21 12:08 Total Protein 8.2 g/dL (6.3-8.2) 12/06/21 12:08 Albumin 3.6 g/dL (3.9-5) L 12/06/21 12:08 Albumin/Globulin Ratio 0.8 % 12/06/21 12:08 Lipase 18 units/L (13-60) 12/06/21 12:08 HCG, Qual Negative (Negative) 12/06/21 12:26 Urine Color Yellow (Yellow) 12/06/21 Unknown Urine Turbidity Cloudy (Clear) 12/06/21 Unknown Urine pH 6.0 (5.0-7.0) 12/06/21 Unknown Ur Specific [place] 1.028 (1.003-1.030) 12/06/21 Unknown Urine Protein 100 mg/dl mg/dL (Negative) 12/06/21 Unknown Urine Glucose (UA) >=500 mg/dL (Negative) 12/06/21 Unknown Urine Ketones 20 mg/dL (Negative) 12/06/21 Unknown Urine Blood Lg (Negative) 12/06/21 Unknown Urine Nitrite Neg (Negative) 12/06/21 Unknown Urine Bilirubin Neg (Negative) 12/06/21 Unknown Urine Urobilinogen < 2.0 mg/dL (<2.0) 12/06/21 Unknown Ur Leukocyte Esterase Lg (Negative) 12/06/21 Unknown Urine WBC (Auto) > 182.0 /HPF (0.0-6.0) H 12/06/21 Unknown Urine RBC (Auto) 6.0 /HPF (0.0-6.0) 12/06/21 Unknown U Epithel Cells (Auto) 3.0 /HPF (0-13.0) 12/06/21 Unknown Urine Bacteria (Auto) 1+ /HPF (Negative) 12/06/21 Unknown Urine WBC Clumps 3+ /HPF 12/06/21 Unknown Urine Mucus Few /HPF 12/06/21 Unknown - Imaging and Cardiology Imaging and Cardiology: Abdominal ultrasound. No acute abnormalities are seen Abdomen and pelvic CT No acute abnormalities are seen minimal retroperitoneal and pelvic sharif prominence probably not significant but recommend follow-up. Assessment and Plan Advance Directives: Yes (Full code) VTE prophylaxis?: Chemical Plan of care discussed with patient/family: Yes - Patient Problems (1) SIRS (systemic inflammatory response syndrome) Current Visit: Yes Status: Acute Plan to address problem: Clinical picture consistent with systemic inflammatory response syndrome High white count (2) Acute pyelonephritis Current Visit: Yes Status: Acute Plan to address problem: Patient initiated on IV Rocephin and IV fluids (3) Hyperosmolar hyperglycemic state (HHS) Current Visit: Yes Status: Acute Plan to address problem: Patient initiated on IV fluids and frequent Accu-Cheks and high-dose insulin protocol Check hemoglobin A1c Long-acting insulin initiated (4) DVT prophylaxis Current Visit: Yes Status: Acute Plan to address problem: On heparin and GI prophylaxis (5) Advance care planning Current Visit: Yes Status: Acute Plan to address problem: Disease education conducted, care plan discussed, diagnosis discussed, prognosis discussed. Patient is full code. Patient acknowledged understanding and agreement with care plan. +30 minutes.
[2021-12-06] MEDS ORDERED: MORPHINE 2 MG/1 ML INJ IV PRN (21:02)
[2021-12-06] MEDS ORDERED: INSULIN LISPRO 100 UNIT/ML SUB-Q ONE (21:12)
[2021-12-06] MEDS ORDERED: INSULIN GLARGINE 100 UNITS/ML SUB-Q SCH (22:00)
[2021-12-06] MEDS: HYDROmorphone 1 MG/1 ML INJ IV PRN (23:30)
[2021-12-06] MEDS: ONDANSETRON 4 MG/2 ML INJ IV PRN (23:30)
[2021-12-07] MEDS: HEPARIN 5,000 UNIT/1 ML VIAL SUB-Q SCH ×3 (00:39→21:54)
[2021-12-07] MEDS: SODIUM CHLORIDE 0.9% 1000 ML 1,000 ML IV SCH ×2 (00:40→16:16)
[2021-12-07] MEDS ORDERED: INSULIN LISPRO 100 UNIT/ML SUB-Q ONE (00:45)
[2021-12-07] MEDS: METOCLOPRAMIDE 10 MG/2 ML INJ IV PRN ×2 (02:06→16:09)
[2021-12-07 04:34] LABS: Hematocrit 38.6 % (30.3-42.9); Hemoglobin 13.1 gm/dl (10.1-14.3); Mean Corpuscular HGB Conc 34 % (30-34); Mean Corpuscular Volume 88 fl (79-97); Platelet Count 264 K/mm3 (140-440); Red Blood Count 4.41 M/mm3 (3.65-5.03); Red Cell Distribution Width 13.2 % (13.2-15.2)
[2021-12-07 04:53] LABS: Albumin 3.1 g/dL (3.9-5); BUN/Creatinine Ratio 24; Blood Urea Nitrogen 24 mg/dL (7-17); Calcium 8.8 mg/dL (8.4-10.2); Hemolysis Index 0
[2021-12-07 04:56] LABS: Alanine Aminotransferase < 5 units/L (7-56)
[2021-12-07 06:25] LABS: Band Neutrophils # (Manual) 2.4 K/mm3; Basophils % (Manual) 0 % (0.0-1.8); Eosinophils % (Manual) 0 % (0.0-4.3); Platelet Estimate Consistent w Auto; RBC Morphology Normal; Total Cells Counted 100
[2021-12-07] MEDS: INSULIN REGULAR, HUMAN 100 UNITS/1 ML IV ONE (07:48)
[2021-12-07] MEDS: cefTRIAXone/NS 2 GM/100 ML 2 GM/100 ML BAG IV ONE (07:49)
--- NOTE | 2021-12-07 08:28 | Progress Note ---
Assessment and Plan Assessment and plan: --SIRS (systemic inflammatory response syndrome) Current Visit: Yes Status: Acute : Clinical picture consistent with systemic inflammatory response syndrome High white count --Acute pyelonephritis Current Visit: Yes Status: Acute Patient initiated on IV Rocephin and IV fluids --Hyperosmolar hyperglycemic state (HHS) Current Visit: Yes Status: Acute Patient initiated on IV fluids and frequent Accu-Cheks and high-dose insulin protocol Check hemoglobin A1c Long-acting insulin initiated --Hyponatremia; Normal saline, closely monitor electrolytes Supportive care -DVT prophylaxis Current Visit: Yes Status: Acute On heparin and GI prophylaxis --Obesity; BMI 33.8 Current Visit: Yes Status: Chronic -Advance care planning Current Visit: Yes Status: Acute Disease education conducted, care plan discussed, diagnosis discussed, prognosis discussed. Patient is full code. Patient acknowledged understanding and agreement with care plan. +30 minutes. Closely monitor the patient and adjust management as needed plan of care reviewed with the patient and her nurse History Interval history: I have seen and examined the patient at the bedside And chart and medications reviewed No new events reported by the nursing staff Patient was admitted with acute pyelonephritis\ Vital signs noted Hospitalist Physical - Constitutional Vitals: Temp Pulse Resp BP Pulse Ox 98.2 F 116 H 16 123/77 95 12/07/21 08:12 12/07/21 08:12 12/07/21 08:12 12/07/21 08:12 12/07/21 08:12 General appearance: Present: no acute distress, well-nourished - EENT Eyes: Present: PERRL, scleral icterus - Neck Neck: Present: supple, normal ROM - Respiratory Respiratory effort: normal Respiratory: bilateral: diminished, negative: rales, rhonchi, wheezing - Cardiovascular Rhythm: regular Heart Sounds: Present: S1 & S2 - Extremities Extremities: no ischemia, No edema - Abdominal General gastrointestinal: soft, non-tender, non-distended, normal bowel sounds - Integumentary Integumentary: Present: clear, warm - Psychiatric Psychiatric: appropriate mood/affect, cooperative - Neurologic Neurologic: CNII-XII intact, moves all extremities Results - Labs CBC & Chem 7: 12/07/21 04:09 12/07/21 04:09 Labs: Laboratory Last Values WBC 24.3 K/mm3 (4.5-11.0) H 12/07/21 04:09 RBC 4.41 M/mm3 (3.65-5.03) 12/07/21 04:09 Hgb 13.1 gm/dl (10.1-14.3) 12/07/21 04:09 Hct 38.6 % (30.3-42.9) 12/07/21 04:09 MCV 88 fl (79-97) 12/07/21 04:09 MCH 30 pg (28-32) 12/07/21 04:09 MCHC 34 % (30-34) 12/07/21 04:09 RDW 13.2 % (13.2-15.2) 12/07/21 04:09 Plt Count 264 K/mm3 (140-440) 12/07/21 04:09 Add Manual Diff Complete 12/07/21 04:09 Total Counted 100 12/07/21 04:09 Seg Neutrophils % [employer] Receptionist 12/07/21 04:09 Seg Neuts % (Manual) 84.0 % (40.0-70.0) H 12/07/21 04:09 Band Neutrophils % 10.0 % 12/07/21 04:09 Lymphocytes % (Manual) 2.0 % (13.4-35.0) L 12/07/21 04:09 Reactive Lymphs % (Man) 0 % 12/07/21 04:09 Monocytes % (Manual) 4.0 % (0.0-7.3) 12/07/21 04:09 Eosinophils % (Manual) 0 % (0.0-4.3) 12/07/21 04:09 Basophils % (Manual) 0 % (0.0-1.8) 12/07/21 04:09 Metamyelocytes % 0 % 12/07/21 04:09 Myelocytes % 0 % 12/07/21 04:09 Promyelocytes % 0 % 12/07/21 04:09 Blast Cells % 0 % 12/07/21 04:09 Nucleated RBC % Not Reportable 12/07/21 04:09 Seg Neutrophils # Man 20.4 K/mm3 (1.8-7.7) H 12/07/21 04:09 Band Neutrophils # 2.4 K/mm3 12/07/21 04:09 Lymphocytes # (Manual) 0.5 K/mm3 (1.2-5.4) L 12/07/21 04:09 Abs React Lymphs (Man) 0.0 K/mm3 12/07/21 04:09 Monocytes # (Manual) 1.0 K/mm3 (0.0-0.8) H 12/07/21 04:09 Eosinophils # (Manual) 0.0 K/mm3 (0.0-0.4) 12/07/21 04:09 Basophils # (Manual) 0.0 K/mm3 (0.0-0.1) 12/07/21 04:09 Metamyelocytes # 0.0 K/mm3 12/07/21 04:09 Myelocytes # 0.0 K/mm3 12/07/21 04:09 Promyelocytes # 0.0 K/mm3 12/07/21 04:09 Blast Cells # 0.0 K/mm3 12/07/21 04:09 WBC Morphology Not Reportable 12/07/21 04:09 Hypersegmented Neuts Not Reportable 12/07/21 04:09 Hyposegmented Neuts Not Reportable 12/07/21 04:09 Hypogranular Neuts Not Reportable 12/07/21 04:09 Smudge Cells Not Reportable 12/07/21 04:09 Toxic Granulation Not Reportable 12/07/21 04:09 Toxic Vacuolation Not Reportable 12/07/21 04:09 Dohle Bodies Not Reportable 12/07/21 04:09 Pelger-Huet Anomaly Not Reportable 12/07/21 04:09 Shannon Rods Not Reportable 12/07/21 04:09 Platelet Estimate Consistent w auto 12/07/21 04:09 Clumped Platelets Not Reportable 12/07/21 04:09 Plt Clumps, EDTA Not Reportable 12/07/21 04:09 Large Platelets Not Reportable 12/07/21 04:09 Giant Platelets Not Reportable 12/07/21 04:09 Platelet Satelliting Not Reportable 12/07/21 04:09 Plt Morphology Comment Not Reportable 12/07/21 04:09 RBC Morphology Normal 12/07/21 04:09 Dimorphic RBCs Not Reportable 12/07/21 04:09 Polychromasia Not Reportable 12/07/21 04:09 Hypochromasia Not Reportable 12/07/21 04:09 Poikilocytosis Not Reportable 12/07/21 04:09 Anisocytosis Not Reportable 12/07/21 04:09 Microcytosis Not Reportable 12/07/21 04:09 Macrocytosis Not Reportable 12/07/21 04:09 Spherocytes Not Reportable 12/07/21 04:09 Pappenheimer Bodies Not Reportable 12/07/21 04:09 Sickle Cells Not Reportable 12/07/21 04:09 Target Cells Not Reportable 12/07/21 04:09 Tear Drop Cells Not Reportable 12/07/21 04:09 Ovalocytes Not Reportable 12/07/21 04:09 Helmet Cells Not Reportable 12/07/21 04:09 [place] Bodies Not Reportable 12/07/21 04:09 [place] Rings Not Reportable 12/07/21 04:09 [place] Cells Not Reportable 12/07/21 04:09 Bite Cells Not Reportable 12/07/21 04:09 Crenated Cell Not Reportable 12/07/21 04:09 Elliptocytes Not Reportable 12/07/21 04:09 Acanthocytes (Spur) Not Reportable 12/07/21 04:09 Rouleaux Not Reportable 12/07/21 04:09 Hemoglobin C Crystals Not Reportable 12/07/21 04:09 Schistocytes Not Reportable 12/07/21 04:09 Malaria parasites Not Reportable 12/07/21 04:09 Armando Bodies Not Reportable 12/07/21 04:09 Hem Pathologist Commnt No 12/07/21 04:09 VBG pH 7.475 (7.320-7.420) H 12/06/21 13:17 Sodium 132 mmol/L (137-145) L 12/07/21 04:09 Potassium 4.3 mmol/L (3.6-5.0) 12/07/21 04:09 Chloride 97.6 mmol/L (98-107) L 12/07/21 04:09 Carbon Dioxide 21 mmol/L (22-30) L 12/07/21 04:09 Anion Gap 18 mmol/L 12/07/21 04:09 BUN 24 mg/dL (7-17) H 12/07/21 04:09 Creatinine 1.0 mg/dL (0.6-1.2) 12/07/21 04:09 Estimated GFR > 60 ml/min 12/07/21 04:09 BUN/Creatinine Ratio 24 % 12/07/21 04:09 Glucose 351 mg/dL (65-100) H 12/07/21 04:09 POC Glucose 316 mg/dL (70-105) H 12/07/21 05:27 Calcium 8.8 mg/dL (8.4-10.2) 12/07/21 04:09 Phosphorus 3.60 mg/dL (2.5-4.5) 12/06/21 13:17 Magnesium 2.10 mg/dL (1.7-2.3) 12/06/21 13:17 Total Bilirubin 1.20 mg/dL (0.1-1.2) 12/07/21 04:09 AST 8 units/L (5-40) 12/07/21 04:09 ALT < 5 units/L (7-56) L 12/07/21 04:09 Alkaline Phosphatase 116 units/L (35-129) 12/07/21 04:09 Total Protein 7.6 g/dL (6.3-8.2) 12/07/21 04:09 Albumin 3.1 g/dL (3.9-5) L 12/07/21 04:09 Albumin/Globulin Ratio 0.7 % 12/07/21 04:09 Lipase 18 units/L (13-60) 12/06/21 12:08 HCG, Qual Negative (Negative) 12/06/21 12:26 Urine Color Yellow (Yellow) 12/06/21 Unknown Urine Turbidity Cloudy (Clear) 12/06/21 Unknown Urine pH 6.0 (5.0-7.0) 12/06/21 Unknown Ur Specific [place] 1.028 (1.003-1.030) 12/06/21 Unknown Urine Protein 100 mg/dl mg/dL (Negative) 12/06/21 Unknown Urine Glucose (UA) >=500 mg/dL (Negative) 12/06/21 Unknown Urine Ketones 20 mg/dL (Negative) 12/06/21 Unknown Urine Blood Lg (Negative) 12/06/21 Unknown Urine Nitrite Neg (Negative) 12/06/21 Unknown Urine Bilirubin Neg (Negative) 12/06/21 Unknown Urine Urobilinogen < 2.0 mg/dL (<2.0) 12/06/21 Unknown Ur Leukocyte Esterase Lg (Negative) 12/06/21 Unknown Urine WBC (Auto) > 182.0 /HPF (0.0-6.0) H 12/06/21 Unknown Urine RBC (Auto) 6.0 /HPF (0.0-6.0) 12/06/21 Unknown U Epithel Cells (Auto) 3.0 /HPF (0-13.0) 12/06/21 Unknown Urine Bacteria (Auto) 1+ /HPF (Negative) 12/06/21 Unknown Urine WBC Clumps 3+ /HPF 12/06/21 Unknown Urine Mucus Few /HPF 12/06/21 Unknown Pena/IV: Voiding Method Toilet Active Medications - Current Medications Current Medications: Generic Name Dose Route Start Last Admin Trade Name Freq PRN Reason Stop Dose Admin Acetaminophen 650 mg 12/06/21 21:02 Acetaminophen 325 Mg Tab PO Q4H PRN Pain MILD(1-3)/Fever >100.5/PAK Heparin Sodium (Porcine) 5,000 unit 12/06/21 22:00 12/07/21 00:39 Heparin 5,000 Unit/1 Ml Vial SUB-Q 5,000 unit Q12HR FRANCESCA Administration Hydromorphone HCl 0.5 mg 12/06/21 21:02 12/06/21 23:30 Hydromorphone 1 Mg/1 Ml Inj IV 0.5 mg Q3H PRN Administration Pain , Severe (7-10) Sodium Chloride 1,000 mls @ 125 mls/hr 12/06/21 21:15 12/07/21 00:40 Nacl 0.9% 1000 Ml IV 125 mls/hr DIRECT FRANCESCA Administration Ceftriaxone Sodium 2 gm in 100 mls @ 200 mls/hr 12/07/21 20:00 Rocephin/Ns 2 Gm/100 Ml IV Q24H [facility] Protocol Insulin Glargine 25 units 12/06/21 22:00 12/07/21 00:39 Insulin Glargine 100 Units/Ml SUB-Q 25 units QHS FRANCESCA Administration Metoclopramide HCl 10 mg 12/06/21 21:02 12/07/21 02:06 Metoclopramide 10 Mg/2 Ml Inj IV 10 mg Q6H PRN Administration Nausea And Vomiting Morphine Sulfate 2 mg 12/06/21 21:02 12/07/21 02:06 Morphine 2 Mg/1 Ml Inj IV 2 mg Q4H PRN Administration Pain, Moderate (4-6) Ondansetron HCl 4 mg 12/06/21 21:02 12/06/21 23:30 Ondansetron 4 Mg/2 Ml Inj IV 4 mg Q3H PRN Administration Nausea And Vomiting Oxycodone/Acetaminophen 1 tab 12/06/21 21:02 Oxycodone /Acetaminophen 5-325mg Tab PO Q6H PRN Pain, Moderate (4-6) Sodium Chloride 10 ml 12/06/21 22:00 12/07/21 07:49 Sodium Chloride 0.9% 10 Ml Flush Syringe IV Not Given BID FRANCESCA Sodium Chloride 10 ml 12/06/21 21:02 Sodium Chloride 0.9% 10 Ml Flush Syringe IV PRN PRN LINE FLUSH
[2021-12-07] MEDS: ONDANSETRON 4 MG/2 ML INJ IV PRN (08:51)
[2021-12-07] MEDS: ACETAMINOPHEN 325 MG TAB PO PRN ×2 (08:52→16:08)
[2021-12-07] MEDS: oxyCODONE /ACETAMINOPHEN 5-325MG TAB PO PRN ×2 (11:40→21:52)
[2021-12-07] MEDS: INSULIN LISPRO 100 UNIT/ML SUB-Q SCH ×3 (11:40→21:55)
[2021-12-07] MEDS: INSULIN GLARGINE 100 UNITS/ML SUB-Q SCH ×2 (12:42→21:54)
[2021-12-07] MEDS: cefTRIAXone/NS 2 GM/100 ML 2 GM/100 ML BAG IV SCH (20:29)
[2021-12-08] MEDS: ONDANSETRON 4 MG/2 ML INJ IV PRN ×3 (02:24→18:18)
[2021-12-08] MEDS: SODIUM CHLORIDE 0.9% 1000 ML 1,000 ML IV SCH (02:27)
[2021-12-08] MEDS: INSULIN LISPRO 100 UNIT/ML SUB-Q SCH ×4 (08:16→22:36)
[2021-12-08] MEDS: oxyCODONE /ACETAMINOPHEN 5-325MG TAB PO PRN ×2 (09:06→18:20)
[2021-12-08] MEDS: INSULIN GLARGINE 100 UNITS/ML SUB-Q SCH ×2 (09:06→22:36)
[2021-12-08] MEDS: HEPARIN 5,000 UNIT/1 ML VIAL SUB-Q SCH ×2 (09:06→22:37)
[2021-12-08] MEDS ORDERED: INSULIN GLARGINE 100 UNITS/ML SUB-Q NR (09:18)
--- NOTE | 2021-12-08 09:23 | Progress Note ---
Assessment and Plan Assessment and plan: --SIRS (systemic inflammatory response syndrome) Current Visit: Yes Status: Acute : Clinical picture consistent with systemic inflammatory response syndrome High white count --Acute pyelonephritis Current Visit: Yes Status: Acute Patient initiated on IV Rocephin and IV fluids follow cultures Urine cultures gram-negative rods --sepsis secondary to UTI: Gram-negative rods Current Visit: Yes Status: Acute Continue Rocephin, follow culture sensitivities --hyperosmolar hyperglycemic state (HHS) Current Visit: Yes Status: Acute Patient initiated on IV fluids and frequent Accu-Cheks and high-dose insulin protocol Check hemoglobin A1c 11.9, Accu-Cheks sliding scale coverage ADA diet Long-acting insulin , monitor sugars and adjust doses Diabetic diet education, diabetic education prior to discharge Home health nurse for disease monitoring at discharge --Hyponatremia; Normal saline, closely monitor electrolytes Supportive care -DVT prophylaxis Current Visit: Yes Status: Acute On heparin and GI prophylaxis --Obesity; BMI 33.8 Current Visit: Yes Status: Chronic -Advance care planning Current Visit: Yes Status: Acute Disease education conducted, care plan discussed, diagnosis discussed, prognosis discussed. Patient is full code. Patient acknowledged understanding and agreement with care plan. +30 minutes. Closely monitor the patient and adjust management as needed plan of care reviewed with the patient and her nurse Brief history and daily hospital course: 41-year-old female patient was admitted through emergency room with right upper quadrant pain nausea vomiting of 3 days duration patient was noted to be have acute pyelonephritis urinary tract infection started on empiric antibiotics urine cultures are positive for gram-negative rods . 12/08/2021; UTI gram-negative rods, follow sensitivities, currently on Rocephin Diabetic education, nutrition education prior to discharge, home health nurse for disease monitoring Disposition; follow sensitivities adjust antibiotics,, discharge when stable History Interval history: I have seen and examined the patient Patient's charts and medications reviewed Patient complains of flank pain Blood sugars uncontrolled Vital signs reviewed Hospitalist Physical - Constitutional Vitals: Temp Pulse Resp BP Pulse Ox 98.3 F 120 H 16 149/93 97 12/08/21 08:18 12/08/21 08:18 12/08/21 08:18 12/08/21 08:18 12/08/21 08:18 General appearance: Present: no acute distress, well-nourished, obese - EENT Eyes: Present: PERRL, EOM intact - Neck Neck: Present: supple, normal ROM - Respiratory Respiratory effort: normal Respiratory: bilateral: diminished, negative: rales, rhonchi, wheezing - Cardiovascular Rhythm: regular Heart Sounds: Present: S1 & S2 - Extremities Extremities: no ischemia, No edema - Abdominal General gastrointestinal: soft, non-tender, non-distended, normal bowel sounds - Integumentary Integumentary: Present: clear, warm - Psychiatric Psychiatric: appropriate mood/affect, cooperative - Neurologic Neurologic: CNII-XII intact, moves all extremities Results - Labs CBC & Chem 7: 12/07/21 04:09 12/08/21 10:12 Labs: Laboratory Last Values WBC 24.3 K/mm3 (4.5-11.0) H 12/07/21 04:09 RBC 4.41 M/mm3 (3.65-5.03) 12/07/21 04:09 Hgb 13.1 gm/dl (10.1-14.3) 12/07/21 04:09 Hct 38.6 % (30.3-42.9) 12/07/21 04:09 MCV 88 fl (79-97) 12/07/21 04:09 MCH 30 pg (28-32) 12/07/21 04:09 MCHC 34 % (30-34) 12/07/21 04:09 RDW 13.2 % (13.2-15.2) 12/07/21 04:09 Plt Count 264 K/mm3 (140-440) 12/07/21 04:09 Add Manual Diff Complete 12/07/21 04:09 Total Counted 100 12/07/21 04:09 Seg Neutrophils % [place] Rough Opener 12/07/21 04:09 Seg Neuts % (Manual) 84.0 % (40.0-70.0) H 12/07/21 04:09 Band Neutrophils % 10.0 % 12/07/21 04:09 Lymphocytes % (Manual) 2.0 % (13.4-35.0) L 12/07/21 04:09 Reactive Lymphs % (Man) 0 % 12/07/21 04:09 Monocytes % (Manual) 4.0 % (0.0-7.3) 12/07/21 04:09 Eosinophils % (Manual) 0 % (0.0-4.3) 12/07/21 04:09 Basophils % (Manual) 0 % (0.0-1.8) 12/07/21 04:09 Metamyelocytes % 0 % 12/07/21 04:09 Myelocytes % 0 % 12/07/21 04:09 Promyelocytes % 0 % 12/07/21 04:09 Blast Cells % 0 % 12/07/21 04:09 Nucleated RBC % Not Reportable 12/07/21 04:09 Seg Neutrophils # Man 20.4 K/mm3 (1.8-7.7) H 12/07/21 04:09 Band Neutrophils # 2.4 K/mm3 12/07/21 04:09 Lymphocytes # (Manual) 0.5 K/mm3 (1.2-5.4) L 12/07/21 04:09 Abs React Lymphs (Man) 0.0 K/mm3 12/07/21 04:09 Monocytes # (Manual) 1.0 K/mm3 (0.0-0.8) H 12/07/21 04:09 Eosinophils # (Manual) 0.0 K/mm3 (0.0-0.4) 12/07/21 04:09 Basophils # (Manual) 0.0 K/mm3 (0.0-0.1) 12/07/21 04:09 Metamyelocytes # 0.0 K/mm3 12/07/21 04:09 Myelocytes # 0.0 K/mm3 12/07/21 04:09 Promyelocytes # 0.0 K/mm3 12/07/21 04:09 Blast Cells # 0.0 K/mm3 12/07/21 04:09 WBC Morphology Not Reportable 12/07/21 04:09 Hypersegmented Neuts Not Reportable 12/07/21 04:09 Hyposegmented Neuts Not Reportable 12/07/21 04:09 Hypogranular Neuts Not Reportable 12/07/21 04:09 Smudge Cells Not Reportable 12/07/21 04:09 Toxic Granulation Not Reportable 12/07/21 04:09 Toxic Vacuolation Not Reportable 12/07/21 04:09 Dohle Bodies Not Reportable 12/07/21 04:09 Pelger-Huet Anomaly Not Reportable 12/07/21 04:09 Shannon Rods Not Reportable 12/07/21 04:09 Platelet Estimate Consistent w auto 12/07/21 04:09 Clumped Platelets Not Reportable 12/07/21 04:09 Plt Clumps, EDTA Not Reportable 12/07/21 04:09 Large Platelets Not Reportable 12/07/21 04:09 Giant Platelets Not Reportable 12/07/21 04:09 Platelet Satelliting Not Reportable 12/07/21 04:09 Plt Morphology Comment Not Reportable 12/07/21 04:09 RBC Morphology Normal 12/07/21 04:09 Dimorphic RBCs Not Reportable 12/07/21 04:09 Polychromasia Not Reportable 12/07/21 04:09 Hypochromasia Not Reportable 12/07/21 04:09 Poikilocytosis Not Reportable 12/07/21 04:09 Anisocytosis Not Reportable 12/07/21 04:09 Microcytosis Not Reportable 12/07/21 04:09 Macrocytosis Not Reportable 12/07/21 04:09 Spherocytes Not Reportable 12/07/21 04:09 Pappenheimer Bodies Not Reportable 12/07/21 04:09 Sickle Cells Not Reportable 12/07/21 04:09 Target Cells Not Reportable 12/07/21 04:09 Tear Drop Cells Not Reportable 12/07/21 04:09 Ovalocytes Not Reportable 12/07/21 04:09 Helmet Cells Not Reportable 12/07/21 04:09 [place] Bodies Not Reportable 12/07/21 04:09 [place] Rings Not Reportable 12/07/21 04:09 Ada Cells Not Reportable 12/07/21 04:09 Bite Cells Not Reportable 12/07/21 04:09 Crenated Cell Not Reportable 12/07/21 04:09 Elliptocytes Not Reportable 12/07/21 04:09 Acanthocytes (Spur) Not Reportable 12/07/21 04:09 Rouleaux Not Reportable 12/07/21 04:09 Hemoglobin C Crystals Not Reportable 12/07/21 04:09 Schistocytes Not Reportable 12/07/21 04:09 Malaria parasites Not Reportable 12/07/21 04:09 Armando Bodies Not Reportable 12/07/21 04:09 Hem Pathologist Commnt No 12/07/21 04:09 VBG pH 7.475 (7.320-7.420) H 12/06/21 13:17 Sodium 132 mmol/L (137-145) L 12/07/21 04:09 Potassium 4.3 mmol/L (3.6-5.0) 12/07/21 04:09 Chloride 97.6 mmol/L (98-107) L 12/07/21 04:09 Carbon Dioxide 21 mmol/L (22-30) L 12/07/21 04:09 Anion Gap 18 mmol/L 12/07/21 04:09 BUN 24 mg/dL (7-17) H 12/07/21 04:09 Creatinine 1.0 mg/dL (0.6-1.2) 12/07/21 04:09 Estimated GFR > 60 ml/min 12/07/21 04:09 BUN/Creatinine Ratio 24 % 12/07/21 04:09 Glucose 351 mg/dL (65-100) H 12/07/21 04:09 POC Glucose 300 mg/dL (70-105) H 12/08/21 07:53 Hemoglobin A1c 11.9 % (4-6) H 12/07/21 14:59 Calcium 8.8 mg/dL (8.4-10.2) 12/07/21 04:09 Phosphorus 3.60 mg/dL (2.5-4.5) 12/06/21 13:17 Magnesium 2.10 mg/dL (1.7-2.3) 12/06/21 13:17 Total Bilirubin 1.20 mg/dL (0.1-1.2) 12/07/21 04:09 AST 8 units/L (5-40) 12/07/21 04:09 ALT < 5 units/L (7-56) L 12/07/21 04:09 Alkaline Phosphatase 116 units/L (35-129) 12/07/21 04:09 Total Protein 7.6 g/dL (6.3-8.2) 12/07/21 04:09 Albumin 3.1 g/dL (3.9-5) L 12/07/21 04:09 Albumin/Globulin Ratio 0.7 % 12/07/21 04:09 Lipase 18 units/L (13-60) 12/06/21 12:08 HCG, Qual Negative (Negative) 12/06/21 12:26 Urine Color Yellow (Yellow) 12/06/21 Unknown Urine Turbidity Cloudy (Clear) 12/06/21 Unknown Urine pH 6.0 (5.0-7.0) 12/06/21 Unknown Ur Specific [place] 1.028 (1.003-1.030) 12/06/21 Unknown Urine Protein 100 mg/dl mg/dL (Negative) 12/06/21 Unknown Urine Glucose (UA) >=500 mg/dL (Negative) 12/06/21 Unknown Urine Ketones 20 mg/dL (Negative) 12/06/21 Unknown Urine Blood Lg (Negative) 12/06/21 Unknown Urine Nitrite Neg (Negative) 12/06/21 Unknown Urine Bilirubin Neg (Negative) 12/06/21 Unknown Urine Urobilinogen < 2.0 mg/dL (<2.0) 12/06/21 Unknown Ur Leukocyte Esterase Lg (Negative) 12/06/21 Unknown Urine WBC (Auto) > 182.0 /HPF (0.0-6.0) H 12/06/21 Unknown Urine RBC (Auto) 6.0 /HPF (0.0-6.0) 12/06/21 Unknown U Epithel Cells (Auto) 3.0 /HPF (0-13.0) 12/06/21 Unknown Urine Bacteria (Auto) 1+ /HPF (Negative) 12/06/21 Unknown Urine WBC Clumps 3+ /HPF 12/06/21 Unknown Urine Mucus Few /HPF 12/06/21 Unknown Microbiology: Microbiology 12/07/21 10:53 Peripheral/Venous Blood Culture - Preliminary Culture in Progress 12/07/21 11:21 Peripheral/Venous Blood Culture - Preliminary Culture in Progress Pena/IV: Voiding Method Toilet Active Medications - Current Medications Current Medications: Generic Name Dose Route Start Last Admin Trade Name Freq PRN Reason Stop Dose Admin Acetaminophen 650 mg 12/06/21 21:02 12/07/21 16:08 Acetaminophen 325 Mg Tab PO 650 mg Q4H PRN Administration Pain MILD(1-3)/Fever >100.5/PAK Heparin Sodium (Porcine) 5,000 unit 12/06/21 22:00 12/08/21 09:06 Heparin 5,000 Unit/1 Ml Vial SUB-Q 5,000 unit Q12HR FRANCESCA Administration Hydromorphone HCl 0.5 mg 12/06/21 21:02 12/06/21 23:30 Hydromorphone 1 Mg/1 Ml Inj IV 0.5 mg Q3H PRN Administration Pain , Severe (7-10) Sodium Chloride 1,000 mls @ 125 mls/hr 12/06/21 21:15 12/08/21 02:27 Nacl 0.9% 1000 Ml IV 125 mls/hr DIRECT FRANCESCA Administration Ceftriaxone Sodium 2 gm in 100 mls @ 200 mls/hr 12/07/21 20:00 12/07/21 20:29 Rocephin/Ns 2 Gm/100 Ml IV 200 mls/hr Q24H FRANCESCA Administration Protocol Insulin Glargine 25 units 12/08/21 22:00 Insulin Glargine 100 Units/Ml SUB-Q BID FRANCESCA Insulin Glargine 10 units 12/08/21 09:18 Insulin Glargine 100 Units/Ml SUB-Q 12/08/21 09:19 ONCE ONE Insulin Human Lispro 11 unit 12/07/21 11:30 12/08/21 08:16 Insulin Lispro 100 Unit/Ml SUB-Q 11 unit ACHS FRANCESCA Administration Metoclopramide HCl 10 mg 12/06/21 21:02 12/07/21 16:09 Metoclopramide 10 Mg/2 Ml Inj IV 10 mg Q6H PRN Administration Nausea And Vomiting Morphine Sulfate 2 mg 12/06/21 21:02 12/07/21 02:06 Morphine 2 Mg/1 Ml Inj IV 2 mg Q4H PRN Administration Pain, Moderate (4-6) Ondansetron HCl 4 mg 12/06/21 21:02 12/08/21 09:15 Ondansetron 4 Mg/2 Ml Inj IV 4 mg Q3H PRN Administration Nausea And Vomiting Oxycodone/Acetaminophen 1 tab 12/06/21 21:02 12/08/21 09:06 Oxycodone /Acetaminophen 5-325mg Tab PO 1 tab Q6H PRN Administration Pain, Moderate (4-6) Sodium Chloride 10 ml 12/06/21 22:00 12/08/21 09:06 Sodium Chloride 0.9% 10 Ml Flush Syringe IV 10 ml BID FRANCESCA Administration Sodium Chloride 10 ml 12/06/21 21:02 Sodium Chloride 0.9% 10 Ml Flush Syringe IV PRN PRN LINE FLUSH Nutrition/Malnutrition Assess - Dietary Evaluation Nutrition/Malnutrition Findings: Nutrition Notes Start: 12/07/21 12:42 Freq: Status: Active Protocol: Document 12/07/21 12:43 ANNELISE (Rec: 12/07/21 12:43 ANNELISE [id number]) Nutrition Notes Need for Assessment generated from: jailor Initial or Follow up Brief Note Weight Status Obese Subjective/Other Information Pt screened for skin risk, however, Alex score is 20. Will assess upon further consult or LOS. Minimum of two criteria No
[2021-12-08 11:29] LABS: Blood Urea Nitrogen 15 mg/dL (7-17); Calcium 8.4 mg/dL (8.4-10.2); Hemolysis Index 22
[2021-12-08 11:33] LABS: BUN/Creatinine Ratio 25
[2021-12-08] MEDS: HYDROmorphone 1 MG/1 ML INJ IV PRN (12:30)
[2021-12-08] MEDS: ACETAMINOPHEN 325 MG TAB PO PRN ×2 (13:17→22:30)
[2021-12-08] MEDS: cefTRIAXone/NS 2 GM/100 ML 2 GM/100 ML BAG IV SCH (22:30)
[2021-12-09] MEDS: METOCLOPRAMIDE 10 MG/2 ML INJ IV PRN (04:37)
[2021-12-09 05:38] LABS: Basophils % (Auto) 0.3 % (0.0-1.8); Eosinophils % (Auto) 0.5 % (0.0-4.3); Hematocrit 37.2 % (30.3-42.9); Hemoglobin 12.7 gm/dl (10.1-14.3); Lymphocytes # (Auto) 0.7 K/mm3 (1.2-5.4); Lymphocytes % (Auto) 6.7 % (13.4-35.0); Mean Corpuscular HGB Conc 34 % (30-34); Mean Corpuscular Volume 86 fl (79-97); Monocytes # (Auto) 0.6 K/mm3 (0.0-0.8); Monocytes % (Auto) 5.8 % (0.0-7.3); Platelet Count 233 K/mm3 (140-440); Red Blood Count 4.33 M/mm3 (3.65-5.03); Red Cell Distribution Width 13.1 % (13.2-15.2)
[2021-12-09 05:57] LABS: BUN/Creatinine Ratio 15; Blood Urea Nitrogen 12 mg/dL (7-17); Calcium 8.4 mg/dL (8.4-10.2); Hemolysis Index 5
[2021-12-09] MEDS: SODIUM CHLORIDE 0.9% 1000 ML 1,000 ML IV SCH (07:18)
[2021-12-09] MEDS: INSULIN LISPRO 100 UNIT/ML SUB-Q SCH ×2 (07:50→11:56)
[2021-12-09] MEDS: ACETAMINOPHEN 325 MG TAB PO PRN (08:48)
[2021-12-09] MEDS: INSULIN GLARGINE 100 UNITS/ML SUB-Q SCH (10:16)
[2021-12-09] MEDS: HEPARIN 5,000 UNIT/1 ML VIAL SUB-Q SCH (10:17)
--- NOTE | 2021-12-09 12:39 | Discharge Summary ---
Providers - Providers Date of Admission: 12/06/21 21:02 Date of discharge: 12/09/21 Attending physician: GREG YOST Primary care physician: HUNG RIVAS Hospitalization Condition: Stable Hospital course: 41-year-old female patient was admitted through emergency room with right upper quadrant pain nausea vomiting of 3 days duration, patient was noted to be have acute pyelonephritis, urinary tract infection. started on empiric antibiotics urine cultures are positive for gram-negative rods -E.coli. Patient was initially placed on IV Rocephin then changed to Levaquin after culture and sensitivities available. Patient also noted hyponatremic and hypokalemic, electrolytes were repleted, IV fluids were given. On admission patient also noted to have blood glucose >600s, A1c 11.9. Patient was counseled to be compliant with her insulin regimen. Patient was then discharged home in stable condition with outpatient follow-up. Disposition: 01 HOME / SELF CARE / HOMELESS Final Discharge Diagnosis (Prints w/discharge instructions): --sepsis secondary to UTI: Gram-negative rods. --Acute pyelonephritis. --Hyponatremia;. --Hypokalemia. --Obesity; BMI 33.8. --hyperosmolar hyperglycemic state (HHS). --DM type 2 Time spent for discharge: 34 minutes Core Measure Documentation - Palliative Care Palliative Care/ Comfort Measures: Not Applicable - Core Measures Any of the following diagnoses?: none Exam - Physical Exam Narrative exam: GENERAL: well-developed and well-nourished morbidly obese lying on bed appeared to be in no discomfort. HEENT: Normocephalic. Atraumatic. No conjunctival congestion or icterus. Patient has moist mucous membranes. NECK: Supple. Trachea midline. CHEST/LUNGS: Clear to auscultated bilaterally, breathing nonlabored. No wheezes crackles or rhonchi. HEART/CARDIOVASCULAR: Regular in rate and rhythm. S1 and S2 positive. ABDOMEN: Abdomen is obese. Patient has normal bowel sounds. SKIN: There is no rash. Warm and dry. NEURO: No focal motor deficit. Follows command. MUSCULOSKELETAL: No joint effusion or tenderness. EXTRIMITY: No edema, no cyanosis or clubbing. PSYCH: Cooperative. - Constitutional Vitals: Temp Pulse Resp BP Pulse Ox 101.1 F H 106 H 20 148/89 99 12/09/21 08:29 12/09/21 08:29 12/09/21 04:00 12/09/21 08:29 12/09/21 11:00 Plan Activity: advance as tolerated Weight Bearing Status: Weight Bear as Tolerated Diet: diabetic Special Instructions: record blood sugar diary Additional Instructions: Follow-up at [facility] in 1 week Follow up with: PRIMARY CARE, [Referring] - 3-5 Days Prescriptions: levoFLOXacin [Levaquin] 750 mg PO QDAY #4 tablet
[2021-12-09 12:51] VITALS: BP 126/84
[2021-12-09] MEDS ORDERED: POTASSIUM CHLORIDE ER 20 MEQ TAB PO ONE (13:00)
== END 2021-12-09 15:10 | disposition home or self-care (01) | DRG 871 ==
LOC: ED 11:22 → 4A 21:02
PROVIDERS: ADMIT Internal Medicine; ATTEND Internal Medicine
DX: A41.50 Gram-negative sepsis, unspecified (principal); E11.00 Type 2 diabetes mellitus with hyperosmolarity without nonketotic hyperglycemic-hyperosmolar coma (NKHHC); N10 Acute pyelonephritis; E87.1 Hypo-osmolality and hyponatremia; N39.0 Urinary tract infection, site not specified; E66.9 Obesity, unspecified; Z68.33 Body mass index [BMI] 33.0-33.9, adult; Z79.4 Long term (current) use of insulin; J45.909 Unspecified asthma, uncomplicated; Z87.891 Personal history of nicotine dependence
CPT/HCPCS: 36415; 71046; 74177; 76705; 80048; 80053; 81001; 82805; 82962; 83036; 83690; 83735; 84100; 84703; 85007; 85025; 87040; 87076; 87086; 87186; G0378; J3490; Q0162; Q9967; J0696; J1170; J1644; J1815; J2270; J2405; J2765; J3480; J7030